=== PATIENT | male | born 1980 | race African-American/Black ===

== ENCOUNTER 2017-04-30 10:16 | Emergency (ER) | payer OTHER ==
[~2017-04-30] VITALS: Ht 177.8 cm; Wt 210.5 kg
[2017-04-30] MEDS ORDERED: fentaNYL PF VIAL 100 MCG/2 ML VIAL IV ONE (11:00)
[2017-04-30] MEDS ORDERED: ONDANSETRON PF 4 MG/2 ML VIAL. IV ONE (11:00)
[2017-04-30] MEDS ORDERED: FAMOTIDINE 20 MG/2 ML VIAL IVP ONE (11:00)
[2017-04-30 11:10] LABS: BASO % 1 % (0-3); EOS % 3 % (0-3); HEMATOCRIT 36.6 % (39.0-53.0); HEMOGLOBIN 11.7 g/dL (13.0-17.5); LYMPH # 1.7 x10^3/uL (1.0-4.8); LYMPH % 21 % (24-48); MEAN CORPUSCULAR HEMOGLOBIN 24 pg (25-35); MEAN CORPUSCULAR HGB CONC 32 g/dL (31-37); MEAN CORPUSCULAR VOLUME 73 fL (79-100); MONO % 8 % (0-9); NEUT % 68 % (31-73); PLATELET COUNT 240 x10^3/uL (140-400); RED BLOOD COUNT 4.99 x10^6/uL (4.30-5.70); RED CELL DISTRIBUTION WIDTH 15.4 % (11.5-14.5); WHITE BLOOD COUNT 8.1 x10^3/uL (4.0-11.0)
[2017-04-30 11:13] LABS: CALCIUM 8.4 mg/dL (8.5-10.1); CREATININE 0.8 mg/dL (0.7-1.3); GFR 132.4; POTASSIUM 4.1 mmol/L (3.5-5.1)
--- NOTE | 2017-04-30 11:14 | PHYS DOC ---
Past Medical History Past Medical History: Asthma, Hypertension, Other Additional Past Medical Histor: SLEEP APNEA Past Surgical History: Cholecystectomy, Gastric Bypass Alcohol Use: None Drug Use: None Adult General Chief Complaint Chief Complaint: ABDOMINAL PAIN HPI HPI Patient is a 36 year old male with history of hypertension, asthma, morbidity obesity, who presents with mild left sided abdominal pain that began 4 days ago. Patient states four weeks ago he had gastric bypass. He states he has lost approximately 75 pounds and currently weighs 464 pounds. He states he has been lifting weights but did not realizes there was a limit on how much weights he can lift post operation. He states he was lifting more than 15 pounds of weights which led him to developing left-sided abdominal pain, he states his pain is worse on weight lifting. Patient denies any nausea vomiting. Denies any diarrhea. Denies any fever. Review of Systems Review of Systems Constitutional: Denies fever or chills [] Eyes: Denies change in visual acuity, redness, or eye pain [] HENT: Denies nasal congestion or sore throat [] Respiratory: Denies cough or shortness of breath [] Cardiovascular: No additional information not addressed in HPI [] GI: Left sided abdominal pain, nausea, vomiting, diarrhea [] : Denies dysuria or hematuria [] Musculoskeletal: Denies back pain or joint pain [] Integument: Denies rash or skin lesions [] Neurologic: Denies headache, focal weakness or sensory changes [] Endocrine: Denies polyuria or polydipsia [] Current Medications Current Medications Current Medications Medications (Trade) Dose Ordered Sig/Herbie Start Time Stop Time Status Last Admin Dose Admin Famotidine (Pepcid) 20 mg 1X ONCE 04/30/17 11:00 04/30/17 11:01 DC 04/30/17 11:08 20 MG Fentanyl Citrate (Fentanyl 2ml Vial) 50 mcg 1X ONCE 04/30/17 11:00 04/30/17 11:01 DC 04/30/17 11:08 50 MCG Info (Do NOT chart on this entry -- for MONITORING) 1 each PRN DAILY PRN 04/30/17 11:15 05/02/17 11:14 Iohexol (Omnipaque 300 Mg/ml) 75 ml 1X ONCE 04/30/17 11:15 04/30/17 11:16 DC 04/30/17 11:32 75 ML Ondansetron HCl (Zofran Odt) 4 mg 1X ONCE 04/30/17 14:00 04/30/17 14:01 UNV Ondansetron HCl (Zofran) 4 mg 1X ONCE 04/30/17 11:00 04/30/17 11:01 DC 04/30/17 11:08 4 MG Oxycodone/ Acetaminophen (Percocet 5/325) 2 tab 1X ONCE 04/30/17 14:00 04/30/17 14:01 UNV Allergies Allergies Allergies Coded Allergies Type Severity Reaction Last Updated Verified Penicillins Allergy Intermediate Rash 05/22/15 Yes codeine Allergy Intermediate Rash 05/22/15 Yes Physical Exam Physical Exam Constitutional: Morbidly obese patient. No acute distress, non-toxic appearance. [] HENT: Normocephalic, atraumatic, bilateral external ears normal, oropharynx moist, no oral exudates, nose normal. [] Eyes: PERRLA, EOMI, conjunctiva normal, no discharge. [] Neck: Normal range of motion, no tenderness, supple, no stridor. [] Cardiovascular:Heart rate regular rhythm, no murmur [] Lungs & Thorax: Bilateral breath sounds clear to auscultation [] Abdomen: Rounded abdomen with multiple healed surgical scars consistent with gastric bypass. Bowel sounds normal, soft, mild tenderness on left mid and lower abdomen, no masses, no pulsatile masses. [] Skin: Warm, dry, no erythema, no rash. [] Back: No tenderness, no CVA tenderness. [] Extremities: No tenderness, no cyanosis, no clubbing, ROM intact, no edema. [] Neurologic: Alert and oriented X 3, normal motor function, normal sensory function, no focal deficits noted. [] Psychologic: Affect normal, judgement normal, mood normal. [] Current Patient Data Vital Signs Vital Signs Date Time Temp Pulse Resp B/P (MAP) Pulse Ox O2 Delivery O2 Flow Rate FiO2 04/30/17 10:30 98.8 80 18 165/78 (107) 96 Room Air 98.8 Lab Values Laboratory Tests Test 04/30/17 10:50 White Blood Count 8.1 x10^3/uL (4.0-11.0) Red Blood Count 4.99 x10^6/uL (4.30-5.70) Hemoglobin 11.7 g/dL (13.0-17.5) L Hematocrit 36.6 % (39.0-53.0) L Mean Corpuscular Volume 73 fL (79-100) L Mean Corpuscular Hemoglobin 24 pg (25-35) L Mean Corpuscular Hemoglobin Concent 32 g/dL (31-37) Red Cell Distribution Width 15.4 % (11.5-14.5) H Platelet Count 240 x10^3/uL (140-400) Neutrophils (%) (Auto) 68 % (31-73) Lymphocytes (%) (Auto) 21 % (24-48) L Monocytes (%) (Auto) 8 % (0-9) Eosinophils (%) (Auto) 3 % (0-3) Basophils (%) (Auto) 1 % (0-3) Neutrophils # (Auto) 5.5 x10^3uL (1.8-7.7) Lymphocytes # (Auto) 1.7 x10^3/uL (1.0-4.8) Monocytes # (Auto) 0.6 x10^3/uL (0.0-1.1) Eosinophils # (Auto) 0.2 x10^3/uL (0.0-0.7) Basophils # (Auto) 0.0 x10^3/uL (0.0-0.2) Sodium Level 143 mmol/L (136-145) Potassium Level 4.1 mmol/L (3.5-5.1) Chloride Level 105 mmol/L (98-107) Carbon Dioxide Level 29 mmol/L (21-32) Anion Gap 9 (6-14) Blood Urea Nitrogen 5 mg/dL (8-26) L Creatinine 0.8 mg/dL (0.7-1.3) Estimated GFR (Cockcroft-Gault) 132.4 BUN/Creatinine Ratio 6 (6-20) Glucose Level 94 mg/dL (70-99) Calcium Level 8.4 mg/dL (8.5-10.1) L Total Bilirubin 0.5 mg/dL (0.2-1.0) Aspartate Amino Transferase (AST) 130 U/L (15-37) H Alanine Aminotransferase (ALT) 71 U/L (16-63) H Alkaline Phosphatase 125 U/L (46-116) H Total Protein 7.3 g/dL (6.4-8.2) Albumin 2.9 g/dL (3.4-5.0) L Albumin/Globulin Ratio 0.7 (1.0-1.7) L Lipase 64 U/L (73-393) L Ethyl Alcohol Level < 10 mg/dL (0-10) Laboratory Tests 04/30/17 10:50 Laboratory Tests 04/30/17 10:50 EKG EKG [] Radiology/Procedures Radiology/Procedures [] Course & Med Decision Making Course & Med Decision Making Pertinent Labs and Imaging studies reviewed. (See chart for details) This is a morbidly obese 36-year-old male patient who presents today with left- sided abdominal pain that began 4 days ago. Patient had gastric bypass 4 weeks ago and has been lifting weights. His pain is exacerbated with weightlifting. He states he did not realize there was a limit on how much weights he is supposed to lift. He states he has been lifting more than 15 pounds of weights which he is not supposed to lift. CBC with nothing really acute. CMP with AST of 1:30, ALT of 71 alkaline phosphate of 125. CT of the abdomen and pelvic was noted for partial tear of the rectus abdominis muscle to the right of midline upper abdomen just below the costal margin with abdominal wall and hernia at that location otherwise no acute findings. Consulted with Dr. Dozier bariatric surgery who did patient's procedure. He requested we discharged patient with a CD of his abdomen and pelvic CT and he can follow-up with the plastic surgeon on Monday. He also requested we discharged patient on a muscle relaxer and pain medicine RX of flexeril and oxycodone provided. Patient is also to follow-up with the bariatric surgeon by calling the office on Monday. Dragon Disclaimer Dragon Disclaimer This electronic medical record was generated, in whole or in part, using a voice recognition dictation system. Departure Departure Impression: Primary Impression: Abdominal pain Additional Impression: Muscle tear Disposition: HOME, SELF-CARE Condition: STABLE Referrals: ABIGAIL OSBORNE (PCP) Patient Instructions: Abdominal Pain Additional Instructions: We did a CT scan of your abdomen which shows you have partial tear of the rectus abdominis muscle. Do not lift anything greater than 3 pounds. Do not take any aspirin or ibuprofen. Take the pain medicines and muscle relaxer as prescribed. Contact the plastic surgeon Dr. Shafer at [phone] on Monday and set up a follow up appointment. Follow up with Dr. Dozier on Monday as well Scripts Ondansetron (ZOFRAN ODT) 4 Mg Tab.rapdis 1 TAB SL Q8HRS, #15 TAB Prov: EDWINA MERA APRN 04/30/17 Oxycodone Hcl/Acetaminophen (OXYCODONE-ACETAMINOPHEN 5-325) 1 Each Tablet 1 EACH PO PRN Q6HRS Y for PAIN, #20 TAB 0 Refills Prov: EDWINA MERA APRN 04/30/17 Cyclobenzaprine Hcl (CYCLOBENZAPRINE HCL) 10 Mg Tablet 1 TAB PO TID, #30 TAB Prov: EDWINA MERA APRN 04/30/17 Problem Qualifiers Primary Impression: Abdominal pain Abdominal location: left lower quadrant Qualified Codes: R10.32 - Left lower quadrant pain EDWINA MERA APRN Apr 30, 2017 11:14
[2017-04-30] MEDS ORDERED: IOHEXOL 300 MG/ML 75 ML VIAL IV ONE (11:15)
[2017-04-30] MEDS ORDERED: CONTRAST GIVEN MC PRN (11:15)
[2017-04-30 11:20] LABS: ALBUMIN 2.9 g/dL (3.4-5.0); ALBUMIN/GLOBULIN RATIO 0.7 (1.0-1.7); TOTAL BILIRUBIN 0.5 mg/dL (0.2-1.0); TOTAL PROTEIN 7.3 g/dL (6.4-8.2)
--- NOTE | 2017-04-30 11:58 | RAD ---
One or more of the following individualized dose reduction techniques were utilized for this examination: 1. Automated exposure control 2. Adjustment of the mA and/or kV according to patient size 3. Use of iterative reconstruction technique CT abdomen and pelvis with contrast. History: Left-sided abdominal pain, gastric bypass [address] scan of the abdomen and pelvis was done using 75 mL Omnipaque 300 contrast. Lung bases are clear. There is no effusion. There is beam hardening artifact due to the patient's size. Portions of the abdominal wall were not imaged due to the patient's size. A liver lesion is not identified. The patient's had a cholecystectomy. Spleen and adrenal glands are normal. Pancreas is normal. There is no mass or hydronephrosis and the kidneys. There is a 3 mm calculus in the lower pole of the left kidney. There is no adenopathy or ascites. The patient's had gastric bypass. There is an abdominal wall hernia to the right of the midline in the upper abdomen just below the costal margin margin. Hernia extends through the medial margin of the rectus abdominis muscle which is disrupted from previous injury or previous surgery. There is no small bowel obstruction. Appendix is normal. There is no old study for comparison. Is minimal inflammation in the anterior abdominal wall to the left of midline which could be from previous surgery, there is no abscess. Impression: 1. Partial tear of the rectus abdominis muscle to the right of midline in the upper abdomen just below the costal margin margin with an abdominal wall hernia at that location. 2. Previous gastric bypass. 3. No bowel obstruction or other acute finding.
[2017-04-30 13:00] VITALS: BP 138/82
[2017-04-30] MEDS ORDERED: oxyCODONE/APAP 5/325 1 TAB TABLET PO ONE (14:00)
[2017-04-30] MEDS ORDERED: ONDANSETRON ODT 4 MG TAB.RAPDIS. PO ONE (14:00)
[2017-04-30] MEDS ORDERED: CYCL10TA2 PO (14:12)
[2017-04-30] MEDS ORDERED: OXYC1TAB7 PO (14:12)
[2017-04-30] MEDS ORDERED: ONDA4TAB10 SL (14:12)
== END 2017-04-30 14:29 | disposition home or self-care (01) ==
LOC: ER 10:16
DX: S39.011A Strain of muscle, fascia and tendon of abdomen, initial encounter (principal); R10.32 Left lower quadrant pain; I10 Essential (primary) hypertension; J45.909 Unspecified asthma, uncomplicated; G47.30 Sleep apnea, unspecified; Z90.49 Acquired absence of other specified parts of digestive tract; Z98.84 Bariatric surgery status; Z88.0 Allergy status to penicillin; Z88.5 Allergy status to narcotic agent; X50.0XXA Overexertion from strenuous movement or load, initial encounter; Y93.89 Activity, other specified; Y99.8 Other external cause status; Y92.39 Other specified sports and athletic area as the place of occurrence of the external cause
CPT/HCPCS: 36415; 74177; 80053; 83690; 85027; 96374; 96375; 99285; G0480; J2405; J3010; Q0162; Q9967; S0028

== ENCOUNTER 2017-05-04 14:11 | Emergency (ER) | payer OTHER ==
[~2017-05-04] VITALS: Ht 175.3 cm; Wt 208.7 kg
[~2017-05-04 14:11] MED LIST: CYCL10TA2 PO; ONDA4TAB10 SL; OXYC1TAB7 PO
[2017-05-04 14:19] VITALS: BP 141/77
[2017-05-04] MEDS ORDERED: LIDOCAINE 1%/EPI 1:100,000 20 ML VIAL. INJ ONE (15:00)
[2017-05-04] MEDS ORDERED: DIPHTH,PERTUSS(ACELL),TET TOX 0.5 ML DISP.SYRIN. VAX IM ONE (15:00)
[2017-05-04] MEDS ORDERED: CLIN300C8 PO (15:33)
--- NOTE | 2017-05-04 15:40 | PHYS DOC ---
Past Medical History Past Medical History: Asthma, Hypertension, Other Additional Past Medical Histor: SLEEP APNEA,ABSCESSES Past Surgical History: Cholecystectomy, Gastric Bypass, Other Additional Past Surgical Histo: PILONIDAL CYST REMOVAL X 3 Alcohol Use: None Drug Use: None Adult General Chief Complaint Chief Complaint: ABSCESS HPI HPI Patient is a 36 year old male who presents with left flank abscess. Denies fevers, symptoms developing over 1 week. Has had abscess in the past that required I&D. Denies DM. Review of Systems Review of Systems Constitutional: Denies fever or chills [] Eyes: Denies change in visual acuity, redness, or eye pain [] HENT: Denies nasal congestion or sore throat [] Respiratory: Denies cough or shortness of breath [] Cardiovascular: denies chest pain GI: Denies abdominal pain, nausea, vomiting, bloody stools or diarrhea [] : Denies dysuria or hematuria [] Musculoskeletal: Denies back pain or joint pain [] Integument: Denies rash or skin lesions [] Neurologic: Denies headache, focal weakness or sensory changes [] Current Medications Current Medications Current Medications Medications (Trade) Dose Ordered Sig/Herbie Start Time Stop Time Status Last Admin Dose Admin Diphtheria/ Tetanus/Acell Pertussis (Boostrix) 0.5 ml ONCE ONCE 05/04/17 15:00 05/04/17 15:01 DC Lidocaine/ Epinephrine (Xylocaine 1%-Epi 1:100,000) 20 ml 1X ONCE 05/04/17 15:00 05/04/17 15:01 DC 05/04/17 15:00 20 ML Allergies Allergies Allergies Coded Allergies Type Severity Reaction Last Updated Verified Penicillins Allergy Intermediate Rash 05/22/15 Yes codeine Allergy Intermediate Rash 05/22/15 Yes Physical Exam Physical Exam Constitutional: Well developed, well nourished, no acute distress, morbid obesity HENT: Normocephalic, atraumatic, bilateral external ears normal, oropharynx moist, no oral exudates, nose normal. [] Eyes: PERRLA, EOMI, conjunctiva normal, no discharge. [] Neck: Normal range of motion, no tenderness, supple, no stridor. [] Cardiovascular:Heart rate regular with regular rhythm Lungs & Thorax: no resp distress Skin: Warm, dry, large R flank abscess, fluctuant, no significant erythema, ttp Back: No tenderness, no CVA tenderness. [] Extremities: No tenderness, no cyanosis, no clubbing, ROM intact, no edema. [] Neurologic: Alert and oriented X 3, normal motor function, normal sensory function, no focal deficits noted. [] Psychologic: Affect normal, judgement normal, mood normal. [] Current Patient Data Vital Signs Vital Signs Date Time Temp Pulse Resp B/P (MAP) Pulse Ox O2 Delivery O2 Flow Rate FiO2 05/04/17 14:19 98.5 94 16 141/77 (98) 94 Room Air 98.5 EKG EKG [] Radiology/Procedures Radiology/Procedures Indication: abscess Procedure: The patient was positioned appropriately. Local anesthesia was 1% LIDO WITH EPI. An incision was then made over the apex of the lesion and COPIOUS PUS material was expressed. The drainage cavity was irrigated and packed with sterile gauze. The patients tetanus status updated as needed. The patient tolerated the procedure well. Complications: none.[] Course & Med Decision Making Course & Med Decision Making Pertinent Labs and Imaging studies reviewed. (See chart for details) Abscess reviewed by ultrasound by me. It shows large abscess. I&D performed, tetanus updated. Patient tolerated well, was packed. Wound check in 2 days, discharged with clindamycin 3 times a day, return precautions given. Dragon Disclaimer Dragon Disclaimer This electronic medical record was generated, in whole or in part, using a voice recognition dictation system. Departure Departure Impression: Primary Impression: Abscess Disposition: HOME, SELF-CARE Condition: STABLE Referrals: ABIGAIL OSBORNE (PCP) Patient Instructions: Abscess, Care After Additional Instructions: Please take antibiotics as directed and have your wound checked in 2 days. Return sooner if you have a fever >100.3 Scripts Clindamycin Hcl (CLINDAMYCIN HCL) 300 Mg Capsule 1 CAP PO TID, #30 CAP Prov: KRISTI SANCHEZ MD 05/04/17 KRISTI SANCHEZ MD May 04, 2017 15:40
== END 2017-05-04 15:54 | disposition home or self-care (01) ==
LOC: ER 14:11
DX: L02.211 Cutaneous abscess of abdominal wall (principal); J45.909 Unspecified asthma, uncomplicated; I10 Essential (primary) hypertension; G47.30 Sleep apnea, unspecified; Z90.49 Acquired absence of other specified parts of digestive tract; Z98.84 Bariatric surgery status; Z88.0 Allergy status to penicillin; Z88.5 Allergy status to narcotic agent
CPT/HCPCS: 10060; 90471; 90715; 99283; J3490

== ENCOUNTER 2017-05-06 10:09 | Emergency (ER) | payer OTHER ==
[~2017-05-06] VITALS: Ht 175.3 cm; Wt 208.7 kg
[~2017-05-06 10:09] MED LIST changes: +CLIN300C8 PO
[2017-05-06 10:23] VITALS: BP 157/93
--- NOTE | 2017-05-06 11:06 | PHYS DOC ---
Past Medical History Past Medical History: Asthma, Hypertension, Other Additional Past Medical Histor: SLEEP APNEA,ABSCESSES MULTIPLE W/I&D Past Surgical History: Cholecystectomy, Gastric Bypass, Other Additional Past Surgical Histo: PILONIDAL CYST REMOVAL X 3 Alcohol Use: None Drug Use: None Adult General Chief Complaint Chief Complaint: WOUND CHECK [facility] HPI Patient is a 36 year old male presents to the emergency department with complaint of wound check and a development of a new abscess. Patient was in the emergency department 2 days ago and had an I&D of an abscess on the left back. He states that is feeling better but he notes that he has developed an abscess on the left abdominal wall. He reports no fever, no nausea, no vomiting. He states he is taking the antibiotics and pain medications as directed on . Review of Systems Review of Systems Constitutional: Denies fever or chills [] Eyes: Denies change in visual acuity, redness, or eye pain [] HENT: Denies nasal congestion or sore throat [] Respiratory: Denies cough or shortness of breath [] Cardiovascular: No additional information not addressed in HPI [] GI: Denies abdominal pain, nausea, vomiting, bloody stools or diarrhea [] : Denies dysuria or hematuria [] Musculoskeletal: Denies back pain or joint pain [] Integument: Abscess Neurologic: Denies headache, focal weakness or sensory changes [] Endocrine: Denies polyuria or polydipsia [] Allergies Allergies Allergies Coded Allergies Type Severity Reaction Last Updated Verified Penicillins Allergy Intermediate Rash 05/22/15 Yes codeine Allergy Intermediate Rash 05/22/15 Yes Physical Exam Physical Exam Constitutional: Well developed, well nourished, no acute distress, non-toxic appearance. [] Neck: Normal range of motion, no tenderness, supple, no lymphadenopathy Cardiovascular:Heart rate regular rhythm, no murmur [] Lungs & Thorax: Bilateral breath sounds clear to auscultation [] Abdomen: Bowel sounds normal, soft, no tenderness, no masses, no pulsatile masses. [] Skin: Left mid back, open wound, no erythema no induration with packing. The packing was removed, small amount of purulent discharge. Patient tolerated procedure well. The left lower abdominal wall, between rolls of subcutaneous tissue, 2 cm raised fluctuant area with mild erythema. There is no induration. Back: No tenderness, no CVA tenderness. [] Current Patient Data Vital Signs Vital Signs Date Time Temp Pulse Resp B/P (MAP) Pulse Ox O2 Delivery O2 Flow Rate FiO2 05/06/17 10:23 99.1 97 16 157/93 (114) 96 Room Air 99.1 EKG EKG [] Radiology/Procedures Radiology/Procedures Procedure note: Packing, 1 inch iodoform gauze, to the left mid back wound. Dressing applied. The abscess on the left lower abdominal wall is cleansed with Betadine, anesthetized with 1% lidocaine 1 mL. #11 blade was utilized to incise the abscess for moderate amount of purulent discharge. The wound was dressed with a bulky bandage. Patient tolerated procedures well. [] Course & Med Decision Making Course & Med Decision Making Pertinent Labs and Imaging studies reviewed. (See chart for details) [] Dragon Disclaimer Dragon Disclaimer This electronic medical record was generated, in whole or in part, using a voice recognition dictation system. Departure Departure Impression: Primary Impression: Abscess Additional Impression: Wound check, abscess Disposition: HOME, SELF-CARE Condition: STABLE Referrals: ABIGAIL OSBORNE (PCP) Patient Instructions: Abscess, Care After Additional Instructions: Continue medications as prescribed for you on . Follow-up with your primary care provider in 2 days. Problem Qualifiers ELIZA ALVAREZ APRN May 06, 2017 11:06
== END 2017-05-06 11:16 | disposition home or self-care (01) ==
LOC: ER 10:09
DX: L02.212 Cutaneous abscess of back [any part, except buttock and flank] (principal); I10 Essential (primary) hypertension; J45.909 Unspecified asthma, uncomplicated; Z88.0 Allergy status to penicillin; Z90.49 Acquired absence of other specified parts of digestive tract; Z98.84 Bariatric surgery status
CPT/HCPCS: 10060; 99283-25

== ENCOUNTER 2017-09-08 19:04 | Emergency (ER) | payer OTHER ==
[~2017-09-08] VITALS: Ht 175.3 cm; Wt 170.6 kg
[2017-09-08 19:10] VITALS: BP 137/74
[2017-09-08] MEDS ORDERED: SULF1TAB24 PO (21:37)
--- NOTE | 2017-09-09 01:42 | PHYS DOC ---
Past Medical History Past Medical History: Asthma, Hypertension, Other Additional Past Medical Histor: SLEEP APNEA,ABSCESSES MULTIPLE W/I&D Past Surgical History: Cholecystectomy, Gastric Bypass, Other Additional Past Surgical Histo: PILONIDAL CYST REMOVAL X 3 Alcohol Use: None Drug Use: None Adult General Chief Complaint Chief Complaint: SKIN PROBLEM HPI HPI Patient is a 36 year old male who presents with an abscess to the top of his left buttock. The patient states that it has continued to grow over the past week and is now extremely large. He denies fever, nausea,or vomiting. He says he gets this condition a proximally twice a year. When it happens he does need to come into the emergency department and have it drained and takes antibiotics to resolve the abscess. Review of Systems Review of Systems Constitutional: Denies fever or chills [] Respiratory: Denies cough or shortness of breath [] Cardiovascular: No additional information not addressed in HPI [] Integument: See history of present illness Neurologic: Denies headache, focal weakness or sensory changes [] Endocrine: Denies polyuria or polydipsia [] All other systems were reviewed and found to be within normal limits, except as documented in this note. Allergies Allergies Allergies Coded Allergies Type Severity Reaction Last Updated Verified Penicillins Allergy Intermediate Rash 05/22/15 Yes codeine Allergy Intermediate Rash 05/22/15 Yes Physical Exam Physical Exam Constitutional: Well developed, well nourished, no acute distress, non-toxic appearance. [] Cardiovascular:Heart rate regular rhythm, no murmur [] Lungs & Thorax: Bilateral breath sounds clear to auscultation [] Skin: There is a golf ball size abscess to the top of the patient's left buttock that is indurated with fluctuance Neurologic: Alert and oriented X 3, normal motor function, normal sensory function, no focal deficits noted. [] Psychologic: Affect normal, judgement normal, mood normal. [] Current Patient Data Vital Signs Vital Signs Date Time Temp Pulse Resp B/P (MAP) Pulse Ox O2 Delivery O2 Flow Rate FiO2 09/08/17 19:10 98.3 84 18 99 Room Air 98.3 EKG EKG [] Radiology/Procedures Radiology/Procedures []The abscess was opened with an 11 blade where upon a copious amount of foul- smelling purulent drainage came from the abscess. There was approximately 30 Robison of purulent drainage upon immediate opening of the abscess. I was able to express approximately 15-20 more mls of purulent drainage. The patient tolerated the procedure well. The area was covered with bulky gauze dressing and taped to allow for continued drainage. Course & Med Decision Making Course & Med Decision Making Pertinent Labs and Imaging studies reviewed. (See chart for details) []1. Abscess Patient was placed on an antibiotic and instructed to take all medication until gone. He is to use hot compresses multiple times a day. He is to follow-up with his primary care provider in 5-7 days for a recheck of this abscess or return to the ED if worsening. Dragon Disclaimer Dragon Disclaimer This electronic medical record was generated, in whole or in part, using a voice recognition dictation system. Departure Departure Impression: Primary Impression: Abscess Disposition: 01 HOME, SELF-CARE Condition: STABLE Referrals: ABIGAIL OSBORNE (PCP) Patient Instructions: Abscess, Care After Additional Instructions: Please follow-up with your primary care provider in one week for recheck of the wound. Return to the ED if worsening. Please use all antibiotics as prescribed. Scripts Sulfamethoxazole/Trimethoprim (BACTRIM DS TABLET) 1 Each Tablet 1 TAB PO BID, #20 TAB Prov: GEOVANNY RUIZ APRN 09/08/17 GEOVANNY RUIZ APRN Sep 09, 2017 01:42
== END 2017-09-08 21:45 | disposition home or self-care (01) ==
LOC: ER 19:04
DX: L02.31 Cutaneous abscess of buttock (principal); J45.909 Unspecified asthma, uncomplicated; I10 Essential (primary) hypertension; Z88.0 Allergy status to penicillin; Z88.5 Allergy status to narcotic agent
CPT/HCPCS: 10060; 99283-25

== ENCOUNTER 2018-01-29 15:46 | Inpatient (IN) | payer OTHER ==
[2018-01-29] MEDS: fentaNYL PF VIAL 100 MCG/2 ML VIAL IV ×3 (16:53→22:34)
[2018-01-29 17:01] LABS: ADD MAN DIFF? NO
[2018-01-29 17:02] LABS: BASO # 0.1 x10^3/uL (0.0-0.2); BASO % 1 % (0-3); EOS # 0.4 x10^3/uL (0.0-0.7); EOS % 4 % (0-3); HEMATOCRIT 37.3 % (39.0-53.0); LYMPH # 1.9 x10^3/uL (1.0-4.8); LYMPH % 21 % (24-48); MEAN CORPUSCULAR HEMOGLOBIN 26 pg (25-35); MEAN CORPUSCULAR HGB CONC 32 g/dL (31-37); MEAN CORPUSCULAR VOLUME 81 fL (79-100); MONO # 0.8 x10^3/uL (0.0-1.1); MONO % 9 % (0-9); NEUT # 6.1 x10^3uL (1.8-7.7); NEUT % 65 % (31-73); PLATELET COUNT 292 x10^3/uL (140-400); RED CELL DISTRIBUTION WIDTH 18.8 % (11.5-14.5); WHITE BLOOD COUNT 9.4 x10^3/uL (4.0-11.0)
[2018-01-29 17:09] LABS: ANION GAP 11 (6-14); BLOOD UREA NITROGEN 20 mg/dL (8-26); BUN/CREATININE RATIO 25 (6-20); CARBON DIOXIDE 28 mmol/L (21-32); CHLORIDE 97 mmol/L (98-107); CREATININE 0.8 mg/dL (0.7-1.3); GFR 131.6; GLUCOSE 101 mg/dL (70-99); POTASSIUM 4.1 mmol/L (3.5-5.1); SODIUM 136 mmol/L (136-145)
[2018-01-29 17:11] LABS: INR 1.1 (0.8-1.1); PARTIAL THROMBOPLASTIN TIME 31 SEC (24-38); PROTHROMBIN TIME PATIENT 13.6 SEC (11.7-14.0)
[2018-01-29 17:15] LABS: ALBUMIN 3.5 g/dL (3.4-5.0); ALBUMIN/GLOBULIN RATIO 0.8 (1.0-1.7); ALK PHOS 119 U/L (46-116); ALT (SGPT) 47 U/L (16-63); AST (SGOT) 39 U/L (15-37); CREATINE KINASE 237 U/L (39-308); MAGNESIUM 1.6 mg/dL (1.8-2.4); TOTAL BILIRUBIN 1.9 mg/dL (0.2-1.0); TOTAL PROTEIN 7.9 g/dL (6.4-8.2)
[2018-01-29] MEDS: IOHEXOL 300 MG/ML 100ML VIAL. IV (17:21)
[2018-01-29] MEDS ORDERED: CONTRAST GIVEN MC (17:30)
[2018-01-29] MEDS ORDERED: ONDANSETRON PF 4 MG/2 ML VIAL. IV (18:45)
[2018-01-29 19:14] LABS: BILIRUBIN,URINE NEGATIVE (NEG); CLARITY,URINE CLEAR; COLOR,URINE YELLOW; GLUCOSE,URINE NEGATIVE (NEG); NITRITE,URINE NEGATIVE (NEG); PROTEIN,URINE NEGATIVE (NEG-TRACE); UROBILINOGEN,URINE >=8.0 mg/dL (0.2 mg/dL)
[2018-01-29 19:19] LABS: BARBITURATES NEG (NEG); BENZODIAZEPINES NEG (NEG); CANNABINOIDS NEG (NEG); COCAINE NEG (NEG); METHADONE NEG (NEG); OPIATES NEG (NEG); PHENCYCLIDINE NEG (NEG)
[2018-01-29 19:21] LABS: AMPHETAMINE/METHAMPHETAMINE NEG (NEG); ETHANOL, URINE NEG (NEG)
[2018-01-29 19:39] LABS: BACTERIA,URINE 0 /HPF (0-FEW); RBC,URINE 0 /HPF (0-2); SQUAMOUS EPITHELIAL CELL,UR OCC /LPF; WBC,URINE 0 /HPF (0-4)
[2018-01-30] MEDS: fentaNYL PF VIAL 100 MCG/2 ML VIAL IV ×7 (00:39→22:22)
[2018-01-30 08:23] LABS: ADD MAN DIFF? NO
[2018-01-30 08:37] LABS: BASO # 0.1 x10^3/uL (0.0-0.2); BASO % 1 % (0-3); EOS # 0.5 x10^3/uL (0.0-0.7); EOS % 5 % (0-3); HEMATOCRIT 36.4 % (39.0-53.0); HEMOGLOBIN 11.8 g/dL (13.0-17.5); LYMPH # 2.1 x10^3/uL (1.0-4.8); LYMPH % 24 % (24-48); MEAN CORPUSCULAR HEMOGLOBIN 26 pg (25-35); MEAN CORPUSCULAR HGB CONC 32 g/dL (31-37); MEAN CORPUSCULAR VOLUME 81 fL (79-100); MONO # 0.8 x10^3/uL (0.0-1.1); MONO % 9 % (0-9); NEUT # 5.6 x10^3uL (1.8-7.7); NEUT % 62 % (31-73); PLATELET COUNT 310 x10^3/uL (140-400)
[2018-01-30 08:44] LABS: ANION GAP 7 (6-14); BLOOD UREA NITROGEN 15 mg/dL (8-26); CALCIUM 9.6 mg/dL (8.5-10.1); CARBON DIOXIDE 29 mmol/L (21-32); CHLORIDE 99 mmol/L (98-107); CREATININE 0.8 mg/dL (0.7-1.3); GFR 131.6; GLUCOSE 104 mg/dL (70-99); POTASSIUM 3.8 mmol/L (3.5-5.1); SODIUM 135 mmol/L (136-145)
[2018-01-30] MEDS: MUPIROCIN 2 % NASAL OINTMENT 22GM TUBE. NS ×2 (11:00→21:00)
[2018-01-30] MEDS: hydroCHLOROthiazide 12.5 MG CAPSULE PO (12:23)
[2018-01-30] MEDS: POLYETHYLENE GLYCOL 3350 17 GM PACKET. PO (12:23)
[2018-01-30] MEDS: NAPROXEN 500 MG TABLET PO (12:24)
[2018-01-30] MEDS: LISINOPRIL 10 MG TABLET PO (12:24)
[2018-01-30] MEDS: DEXAMETHASONE SOD PHOS 20 MG/5 ML VIAL. IV (15:17)
[2018-01-30] MEDS: MAGNESIUM SULFATE 2GM 50 ML IV (15:18)
[2018-01-30] MEDS: oxyCODONE/APAP 10/325 1 TAB TABLET PO (17:51)
[2018-01-30] MEDS: DEXAMETHASONE SOD PHOS 4 MG/ML VIAL IV (17:52)
[2018-01-30] MEDS ORDERED: BISACODYL 10 MG SUPP.RECT. PR (18:15)
[2018-01-30] MEDS ORDERED: DOCUSATE SODIUM 283 MG/5 ML ENEMA. PR (18:15)
[2018-01-30] MEDS: tiZANidine 4 MG TABLET. PO (22:21)
[2018-01-30] MEDS: MAGNESIUM CITRATE 296 ML SOLUTION. PO (22:23)
[2018-01-31] MEDS: oxyCODONE/APAP 10/325 1 TAB TABLET PO ×4 (00:37→18:10)
[2018-01-31] MEDS: DEXAMETHASONE SOD PHOS 4 MG/ML VIAL IV ×5 (00:41→23:50)
[2018-01-31] MEDS: fentaNYL PF VIAL 100 MCG/2 ML VIAL IV ×3 (03:33→23:50)
[2018-01-31] MEDS: tiZANidine 4 MG TABLET. PO ×3 (06:32→21:42)
[2018-01-31] MEDS: MUPIROCIN 2 % NASAL OINTMENT 22GM TUBE. NS ×2 (09:00→18:10)
[2018-01-31] MEDS: POLYETHYLENE GLYCOL 3350 17 GM PACKET. PO (09:00)
[2018-01-31] MEDS: LISINOPRIL 10 MG TABLET PO (10:14)
[2018-01-31] MEDS: BISACODYL 5 MG TABLET.DR. PO (10:15)
[2018-01-31] MEDS: hydroCHLOROthiazide 12.5 MG CAPSULE PO (10:15)
[2018-01-31] MEDS: HYDROcodone/APAP 10/325 1 TAB TABLET PO (10:15)
[2018-01-31] MEDS: MORPHINE ER 15 MG TABLET.ER PO ×2 (11:21→21:42)
[2018-01-31] MEDS: fentaNYL 25MCG/HR PATCH 1 PATCH PATCH.TD72 TD (11:22)
[2018-02-01] MEDS: DEXAMETHASONE SOD PHOS 4 MG/ML VIAL IV (06:40)
[2018-02-01] MEDS: tiZANidine 4 MG TABLET. PO ×2 (06:40→13:53)
[2018-02-01] MEDS: oxyCODONE/APAP 10/325 1 TAB TABLET PO ×2 (06:40→13:54)
[2018-02-01] MEDS: hydroCHLOROthiazide 12.5 MG CAPSULE PO (08:54)
[2018-02-01] MEDS: LISINOPRIL 10 MG TABLET PO (08:54)
[2018-02-01] MEDS: POLYETHYLENE GLYCOL 3350 17 GM PACKET. PO (08:55)
[2018-02-01] MEDS: BISACODYL 5 MG TABLET.DR. PO (08:55)
[2018-02-01] MEDS: MORPHINE ER 15 MG TABLET.ER PO (08:55)
[2018-02-01] MEDS: MUPIROCIN 2 % NASAL OINTMENT 22GM TUBE. NS (10:44)
[2018-02-01] MEDS ORDERED: DEXAMETHASONE SOD PHOS 4 MG/ML VIAL IV (21:00)
== END 2018-02-01 17:28 | disposition home or self-care (01) | DRG 551 ==
LOC: ER 15:46 → 4 NORTH 18:30
DX: M50.20 Other cervical disc displacement, unspecified cervical region (principal); G82.50 Quadriplegia, unspecified; M48.02 Spinal stenosis, cervical region; E66.01 Morbid (severe) obesity due to excess calories; G95.9 Disease of spinal cord, unspecified; S06.4X9A Epidural hemorrhage with loss of consciousness of unspecified duration, initial encounter; S22.49XA Multiple fractures of ribs, unspecified side, initial encounter for closed fracture; F17.210 Nicotine dependence, cigarettes, uncomplicated; G47.30 Sleep apnea, unspecified; Z88.0 Allergy status to penicillin; I10 Essential (primary) hypertension; R20.2 Paresthesia of skin; W01.0XXA Fall on same level from slipping, tripping and stumbling without subsequent striking against object, initial encounter; J45.909 Unspecified asthma, uncomplicated; K59.00 Constipation, unspecified; Z82.49 Family history of ischemic heart disease and other diseases of the circulatory system; Z98.84 Bariatric surgery status; Z68.38 Body mass index [BMI] 38.0-38.9, adult; Z90.49 Acquired absence of other specified parts of digestive tract; Y93.89 Activity, other specified; Y92.098 Other place in other non-institutional residence as the place of occurrence of the external cause; Y99.8 Other external cause status
CPT/HCPCS: 36415; 70450; 70498; 71046; 72125; 72141; 73110; 80048; 80053; 80307; 81001; 82550; 83735; 85025; 85610; 85730; 96374; 97161-GP; 97165-GO; 99285; 99285-25; J1100; J3010; J3475; Q9967

== ENCOUNTER 2018-03-13 14:26 | Emergency (ER) | payer OTHER ==
[2018-03-13 16:20] LABS: ADD MAN DIFF? NO
[2018-03-13 16:22] LABS: BILIRUBIN,URINE MODERATE (NEG); CLARITY,URINE CLEAR; COLOR,URINE YELLOW; GLUCOSE,URINE NEGATIVE (NEG); NITRITE,URINE NEGATIVE (NEG); PROTEIN,URINE NEGATIVE (NEG-TRACE)
[2018-03-13 16:26] LABS: BASO % 1 % (0-3); EOS # 0.1 x10^3/uL (0.0-0.7); EOS % 1 % (0-3); HEMATOCRIT 35.7 % (39.0-53.0); HEMOGLOBIN 11.5 g/dL (13.0-17.5); LYMPH # 1.5 x10^3/uL (1.0-4.8); LYMPH % 18 % (24-48); MEAN CORPUSCULAR HEMOGLOBIN 27 pg (25-35); MEAN CORPUSCULAR HGB CONC 32 g/dL (31-37); MEAN CORPUSCULAR VOLUME 82 fL (79-100); MONO # 0.7 x10^3/uL (0.0-1.1); MONO % 8 % (0-9); NEUT # 5.9 x10^3uL (1.8-7.7); NEUT % 72 % (31-73); PLATELET COUNT 233 x10^3/uL (140-400); RED BLOOD COUNT 4.35 x10^6/uL (4.30-5.70); RED CELL DISTRIBUTION WIDTH 13.9 % (11.5-14.5); WHITE BLOOD COUNT 8.2 x10^3/uL (4.0-11.0)
[2018-03-13] MEDS ORDERED: CONTRAST GIVEN MC (16:30)
[2018-03-13 16:36] LABS: ANION GAP 6 (6-14); BLOOD UREA NITROGEN 11 mg/dL (8-26); BUN/CREATININE RATIO 14 (6-20); CALCIUM 8.9 mg/dL (8.5-10.1); CARBON DIOXIDE 29 mmol/L (21-32); CHLORIDE 105 mmol/L (98-107); CREATININE 0.8 mg/dL (0.7-1.3); GFR 131.6; GLUCOSE 91 mg/dL (70-99); POTASSIUM 3.9 mmol/L (3.5-5.1); SODIUM 140 mmol/L (136-145)
[2018-03-13 16:42] LABS: ALBUMIN 2.8 g/dL (3.4-5.0); ALBUMIN/GLOBULIN RATIO 0.7 (1.0-1.7); ALT (SGPT) 15 U/L (16-63); AST (SGOT) 12 U/L (15-37); LIPASE 42 U/L (73-393); TOTAL BILIRUBIN 0.8 mg/dL (0.2-1.0); TOTAL PROTEIN 6.7 g/dL (6.4-8.2)
[2018-03-13 16:53] LABS: BACTERIA,URINE 0 /HPF (0-FEW); HYALINE CASTS, URINE FEW /HPF; SQUAMOUS EPITHELIAL CELL,UR OCC /LPF
[2018-03-13] MEDS: IOHEXOL 300 MG/ML 100ML VIAL. IV (16:57)
[2018-03-13 17:52] LABS: ALK PHOS 161 U/L (46-116)
== END 2018-03-13 18:34 | disposition home or self-care (01) ==
LOC: ER 14:26
DX: R10.30 Lower abdominal pain, unspecified (principal); G89.29 Other chronic pain; I10 Essential (primary) hypertension; Z88.0 Allergy status to penicillin
CPT/HCPCS: 36415; 74177; 80053; 81001; 83690; 85025; 99285-25; Q9967

== ENCOUNTER → 2018-03-13 | Outpatient (CLI) | payer OTHER | END | disposition home or self-care (01) | LOC: KCIC 14:23 | DX: D71 Functional disorders of polymorphonuclear neutrophils (principal); Z87.891 Personal history of nicotine dependence | CPT/HCPCS: 71046 ==

== ENCOUNTER → 2018-03-20 | Outpatient (CLI) | payer OTHER | END | disposition home or self-care (01) | LOC: MRI 13:52 | DX: S14.15 Other incomplete lesions of cervical spinal cord (principal); M50.21 Other cervical disc displacement, high cervical region; X58.XXXD Exposure to other specified factors, subsequent encounter | CPT/HCPCS: 72141 ==

== ENCOUNTER → 2018-03-26 | Day surgery (SDC) | payer OTHER ==
[~2018-03-26] MED LIST changes: -CLIN300C8 PO; -CYCL10TA2 PO; +DEXAMETHASONE SOD PHOS 20 MG/5 ML VIAL.; +LIDOCAINE 1% PF 2 ML VIAL. ID; +MORPHINE SULFATE 2 MG/ML DISP.SYRIN. IV; -ONDA4TAB10 SL; +ONDANSETRON PF 4 MG/2 ML VIAL.; -OXYC1TAB7 PO; +PROCHLORPERAZINE 10 MG/2 ML VIAL. IV; +PROPOFOL 20 ML IV; +SEVOFLURANE 31 TO 60 MINUTES. IH; +fentaNYL PF VIAL 100 MCG/2 ML VIAL; +fentaNYL PF VIAL 100 MCG/2 ML VIAL IV
[2018-03-26] MEDS: IV RINGERS,LACTATED 1000ML 1,000 ML IV ×2 (06:51→10:37)
[2018-03-26] MEDS: BUPIVACAINE-EPI 0.25%-1:200000 50 ML VIAL. (09:53)
[2018-03-26] MEDS: fentaNYL PF VIAL 100 MCG/2 ML VIAL IV ×4 (10:20→10:53)
[2018-03-26 11:07] LABS: HEMATOCRIT 32.1 % (39.0-53.0); HEMOGLOBIN 10.2 g/dL (13.0-17.5); MEAN CORPUSCULAR HEMOGLOBIN 26 pg (25-35); MEAN CORPUSCULAR HGB CONC 32 g/dL (31-37); MEAN CORPUSCULAR VOLUME 80 fL (79-100); PLATELET COUNT 319 x10^3/uL (140-400); RED BLOOD COUNT 4.01 x10^6/uL (4.30-5.70); RED CELL DISTRIBUTION WIDTH 13.3 % (11.5-14.5); WHITE BLOOD COUNT 4.2 x10^3/uL (4.0-11.0)
[2018-03-26 11:39] LABS: INR 1.3 (0.8-1.1); PARTIAL THROMBOPLASTIN TIME 35 SEC (24-38); PROTHROMBIN TIME PATIENT 15.2 SEC (11.7-14.0)
[2018-03-26] MEDS: PHYTONADIONE 10 MG/ML AMPUL. SQ (12:11)
== END | disposition home or self-care (01) ==
LOC: SURG 08:03
DX: S30.1XXA Contusion of abdominal wall, initial encounter (principal); E66.9 Obesity, unspecified; Z88.0 Allergy status to penicillin; I10 Essential (primary) hypertension; J45.909 Unspecified asthma, uncomplicated; G47.30 Sleep apnea, unspecified; Z98.84 Bariatric surgery status; Z90.49 Acquired absence of other specified parts of digestive tract; Z98.890 Other specified postprocedural states; F17.210 Nicotine dependence, cigarettes, uncomplicated; Z68.39 Body mass index [BMI] 39.0-39.9, adult; V49.9XXA Car occupant (driver) (passenger) injured in unspecified traffic accident, initial encounter; Y93.89 Activity, other specified; Y92.89 Other specified places as the place of occurrence of the external cause; Y99.8 Other external cause status
CPT/HCPCS: 10140; 36415; 85027; 85610; 85730; 87071; 87075; 87205; A7015; J1100; J1956; J2405; J2704; J3010; J3430

== ENCOUNTER 2018-04-30 06:22 | Day surgery (SDC) | payer OTHER ==
[2018-04-30] MEDS ORDERED: PROCHLORPERAZINE 10 MG/2 ML VIAL. IV (07:00)
[2018-04-30] MEDS ORDERED: ONDANSETRON PF 4 MG/2 ML VIAL. IV (07:00)
[2018-04-30] MEDS ORDERED: fentaNYL PF VIAL 100 MCG/2 ML VIAL IV (07:00)
[2018-04-30] MEDS ORDERED: LIDOCAINE 1% PF 2 ML VIAL. ID (07:00)
[2018-04-30] MEDS ORDERED: DEXAMETHASONE SOD PHOS 20 MG/5 ML VIAL. (07:24)
[2018-04-30] MEDS ORDERED: PROPOFOL 0 ML IV (07:24)
[2018-04-30] MEDS ORDERED: LIDOCAINE 2% PF Vial for OR 5 ML VIAL. (07:25)
[2018-04-30] MEDS ORDERED: FAMOTIDINE 20 MG/2 ML VIAL (07:25)
[2018-04-30] MEDS ORDERED: fentaNYL PF VIAL 100 MCG/2 ML VIAL (07:25)
[2018-04-30] MEDS ORDERED: ONDANSETRON PF 4 MG/2 ML VIAL. (07:25)
[2018-04-30] MEDS ORDERED: MIDAZOLAM HCL/PF 2 MG/2 ML VIAL. (07:25)
[2018-04-30] MEDS: IV RINGERS,LACTATED 1000ML 1,000 ML IV (07:33)
[2018-04-30] MEDS ORDERED: PROPOFOL 20 ML IV ×3 (07:49→08:25)
[2018-04-30] MEDS: BUPIVACAINE-EPI 0.25%-1:200000 50 ML VIAL. (07:56)
[2018-04-30] MEDS ORDERED: DESFLURANE 31 TO 60 MINUTES IH (08:40)
[2018-04-30] MEDS: fentaNYL PF VIAL 100 MCG/2 ML VIAL IV ×4 (09:07→09:40)
[2018-04-30] MEDS: MORPHINE SULFATE 2 MG/ML DISP.SYRIN. IV ×4 (09:22→10:00)
[2018-04-30] MEDS: oxyCODONE/APAP 7.5/325 1 TAB TABLET PO (09:59)
== END 2018-04-30 10:45 | disposition home or self-care (01) ==
LOC: SURG 06:22
DX: S30.1XXD Contusion of abdominal wall, subsequent encounter (principal); I10 Essential (primary) hypertension; F17.210 Nicotine dependence, cigarettes, uncomplicated; G47.30 Sleep apnea, unspecified; J45.909 Unspecified asthma, uncomplicated; G89.29 Other chronic pain; M50.21 Other cervical disc displacement, high cervical region; E66.9 Obesity, unspecified; Z90.49 Acquired absence of other specified parts of digestive tract; Z68.39 Body mass index [BMI] 39.0-39.9, adult; Z88.0 Allergy status to penicillin; Z98.84 Bariatric surgery status; Z98.890 Other specified postprocedural states; Z79.899 Other long term (current) drug therapy
CPT/HCPCS: 22902; 88304; A7015; J1100; J1956; J2001; J2250; J2270; J2405; J2704; J3010; S0028

== ENCOUNTER → 2018-08-07 | Outpatient (CLI) | payer MEDICAID, OTHER ==
[~2018-08-07] MED LIST changes: +CLIN300C8 PO; +CYCL10TA2 PO; -DEXAMETHASONE SOD PHOS 20 MG/5 ML VIAL.; +DOCU-150 PO; +FENT1PAT15 TD; +HYDR-963 PO; -LIDOCAINE 1% PF 2 ML VIAL. ID; +LISI10TA2 PO; +LISI1TAB3 PO; +METH-38 PO; -MORPHINE SULFATE 2 MG/ML DISP.SYRIN. IV; +MULT-246 PO; +NAPR-514 PO; +ONDA4TAB10 SL; -ONDANSETRON PF 4 MG/2 ML VIAL.; +OXYC-327 PO; +OXYC1TAB7 PO; +POLY17PO29 PO; -PROCHLORPERAZINE 10 MG/2 ML VIAL. IV; -PROPOFOL 20 ML IV; -SEVOFLURANE 31 TO 60 MINUTES. IH; +SULF1TAB24 PO; +TIZA4TAB PO; -fentaNYL PF VIAL 100 MCG/2 ML VIAL; -fentaNYL PF VIAL 100 MCG/2 ML VIAL IV
--- NOTE | 2018-08-07 08:29 | RAD ---
Limited abdominal ultrasound, 08/07/2018: HISTORY: Left lower quadrant mass The area of clinical concern in the left lower quadrant was carefully scanned. There is a 10.9 x 10.7 x 6.0 cm fluid collection in this region. There are low level internal echoes compatible with minimal debris. No internal color flow is evident. Its margins are smooth. Much of this process appears to lie in the abdominal wall. Its relationship to other structures is not clearly defined on these limited scans. CT scanning is suggested for further evaluation, if not already performed elsewhere. Electronically signed by: Arnaldo Quintanilla MD (08/07/2018 8:25 AM) [facility]
== END | disposition home or self-care (01) ==
LOC: MERGE 07:00 → US 07:00
PROVIDERS: ATTEND Surgery
DX: R19.04 Left lower quadrant abdominal swelling, mass and lump (principal)
CPT/HCPCS: 76705

== ENCOUNTER 2018-08-16 09:16 | Day surgery (SDC) | payer OTHER ==
[~2018-08-16] VITALS: Ht 182.9 cm; Wt 127.0 kg
[~2018-08-16 09:16] MED LIST changes: -DOCU-150 PO; +HYDROmorphone 2 MG/ML VIAL IV PRN; +IV RINGERS,LACTATED 1000ML 1,000 ML IV SCH; +LIDOCAINE 1% PF 2 ML VIAL. ID PRN; +MORPHINE SULFATE 2 MG/ML VIAL. IV PRN; +ONDANSETRON PF 4 MG/2 ML VIAL. IV PRN; +PROCHLORPERAZINE 10 MG/2 ML VIAL. IV PRN; +fentaNYL PF VIAL 100 MCG/2 ML VIAL IV PRN
[2018-08-16] MEDS ORDERED: BUPIVAC MPF-EPI 0.5%-1:200000 30 ML VIAL. ONE (10:00)
[2018-08-16] MEDS ORDERED: PROPOFOL 20 ML IV ONE ×2 (10:50→12:20)
[2018-08-16] MEDS ORDERED: LIDOCAINE 2% PF Vial for OR 5 ML VIAL. ONE (10:50)
[2018-08-16] MEDS ORDERED: ROCURONIUM 50 MG/5 ML VIAL. ONE (10:50)
[2018-08-16] MEDS ORDERED: fentaNYL PF VIAL 100 MCG/2 ML VIAL ONE ×4 (10:50→12:53)
[2018-08-16] MEDS ORDERED: SUCCINYLCHOLINE 200 MG/10 ML VIAL. ONE (10:55)
[2018-08-16] MEDS ORDERED: DEXAMETHASONE SOD PHOS 20 MG/5 ML VIAL. ONE (11:29)
[2018-08-16] MEDS ORDERED: ONDANSETRON PF 4 MG/2 ML VIAL. ONE (11:29)
[2018-08-16] MEDS ORDERED: KETOROLAC 30 MG/ML INJ FOR OR. INJ ONE (11:29)
[2018-08-16] MEDS ORDERED: SEVOFLURANE 31 TO 60 MINUTES. IH ONE (11:29)
--- NOTE | 2018-08-16 12:32 | PDOC ---
BRIEF OPERATIVE NOTE Date: Aug 16, 2018 Pre-Op Diagnosis recurrent abdominal wall hematoma Post-Op Diagnosis same Procedure Performed excision Surgeon Augusto Anesthesia Type: General Blood Loss 25cc IV Fluid 800cc Specimens Obtained skin and subcutaneous mass [id number] cm removed intact Findings large fluid filled mass Complications none ANALI CHANEL MD Aug 16, 2018 12:32
--- NOTE | 2018-08-16 12:33 | DISCH ---
DISCHARGE INSTRUCTIONS Condition on Discharge Condition on Discharge: Stable Activity After Discharge Activity Instructions for Disc: Resume previous activity, Activity as tolerated , Avoid exertion Lifting Instructions after Dis: No heavy lifting Exercise Instruction after Dis: Progress as tolerated Driving Instructions after Dis: Do not drive today Diet after Discharge Diet after Discharge: Regular Wound Incision Care Wound/Incision Care: Ice to area for comfort Other wound/incision instructi: february shower Monday Follow-Up Follow up with: Augusto ten days ANLAI CHANEL MD Aug 16, 2018 12:33
[2018-08-16] MEDS ORDERED: DOCU-150 PO (12:43)
[2018-08-16] MEDS ORDERED: OXYC-327 PO (12:44)
[2018-08-16] MEDS: fentaNYL PF VIAL 100 MCG/2 ML VIAL IV PRN ×4 (12:49→13:13)
[2018-08-16] MEDS ORDERED: oxyCODONE/APAP 7.5/325 1 TAB TABLET PO ONE (13:30)
[2018-08-16] MEDS ORDERED: MORPHINE SULFATE 2 MG/ML VIAL. ONE (13:36)
[2018-08-16 14:25] VITALS: BP 138/80
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
--- NOTE | 2018-08-20 23:07 | PATHOLOGY ---
[facility] Accession Number: [id number] . 01 Material submitted: . SKIN/SUBCUTANEOUS MASS, LEFT LOWER QUADRANT ABDOMEN . 01 Clinical history: . Left lower quadrant mass . 02 Diagnosis: "Skin/subcutaneous mass LLQ abdomen", excision: - Skin and subcutaneous tissue with dermal fibrosis consistent with scar, previous biopsy site changes and localized cyst wall showing fibrosis, fat necrosis and dystrophic calcifications. (See comment) . (CLW:at;08/20/2018) QTA/08/20/2018 . 02 Comment: No epithelial cyst wall lining is identified. No malignancy is seen. The patient has a history of "organizing hematoma/seroma" from a previous left lower quadrant abdominal mass excision ([id number]). The current findings appear similar. Clinical correlations recommended. . (CLW:at;08/20/2018) . 02 Electronically signed: . Lynette Ryan MD, Pathologist NPI- [id number] . 01 Gross description: . The specimen is received in formalin, labeled "Shruthi Kelly JrPamela, skin and subcutaneous mass LLQ abdomen". Received is a segment of fluid-filled capsular-appearing tissue with attached yellow-vieira lobulated tissue measuring 11.5 x 9.8 x 7.2 cm in greatest mentions. There is an attached ellipse of light brown skin measuring 11.3 x 3.5 x 1.1 cm with a linear well-healed, wrinkled scar measuring 10.5 cm in length by up to 0.5 cm in diameter. Sectioning reveals a unilocular cystic structure measuring 9.2 cm in maximum dimensions filled with blood-tinged fluid as well as blood coagulum. The cyst wall is predominantly smooth in appearance with several fibrous-like excrescences ranging in size from 1.1 to 2.3 cm. The specimen is submitted representatively in cassettes A1 through A5. (CAA; 08/17/2018) QAC/QAC . 02 Pathologist provided ICD-10: L90.5 . 02 CPT . 732868 Specimen Comment: A courtesy copy of this report has been sent to Specimen Comment: [phone], . Specimen Comment: Report sent to / DR OSBORNE Performed at: 01 [facility] [address] [place] [address] [id number] MD Juan Martin MD Phone: [phone] Performed at: 02 [facility] [address] [place] [address] [id number] MD Louie Lovett MD Phone: [phone]
== END 2018-08-16 14:25 | disposition home or self-care (01) ==
LOC: SURG 09:16
PROVIDERS: ATTEND Surgery
DX: L76.32 Postprocedural hematoma of skin and subcutaneous tissue following other procedure (principal); L90.5 Scar conditions and fibrosis of skin; I10 Essential (primary) hypertension; G47.33 Obstructive sleep apnea (adult) (pediatric); G89.29 Other chronic pain; Z90.49 Acquired absence of other specified parts of digestive tract; Z79.899 Other long term (current) drug therapy; Z98.84 Bariatric surgery status; Z98.890 Other specified postprocedural states; Z87.891 Personal history of nicotine dependence; Z88.0 Allergy status to penicillin
CPT/HCPCS: 10140; 88304; A7015; J0330; J1100; J1885; J1956; J2001; J2270; J2405; J2704; J3010; J3490

== ENCOUNTER 2019-01-18 21:51 | Emergency (ER) | payer OTHER ==
[~2019-01-18] VITALS: Ht 182.9 cm; Wt 127.0 kg
[~2019-01-18 21:51] MED LIST changes: +DOCU-150 PO; +HYDR-3135 PO; -HYDR-963 PO; -HYDROmorphone 2 MG/ML VIAL IV PRN; -IV RINGERS,LACTATED 1000ML 1,000 ML IV SCH; -LIDOCAINE 1% PF 2 ML VIAL. ID PRN; -MORPHINE SULFATE 2 MG/ML VIAL. IV PRN; -ONDANSETRON PF 4 MG/2 ML VIAL. IV PRN; -OXYC-327 PO; +OXYC1TAB19 PO; -PROCHLORPERAZINE 10 MG/2 ML VIAL. IV PRN; -fentaNYL PF VIAL 100 MCG/2 ML VIAL IV PRN
[2019-01-18 22:15] LABS: BASO % 1 % (0-3); EOS # 0.1 x10^3/uL (0.0-0.7); EOS % 2 % (0-3); HEMATOCRIT 37.2 % (39.0-53.0); HEMOGLOBIN 11.9 g/dL (13.0-17.5); LYMPH # 1.6 x10^3/uL (1.0-4.8); LYMPH % 34 % (24-48); MEAN CORPUSCULAR HEMOGLOBIN 25 pg (25-35); MEAN CORPUSCULAR HGB CONC 32 g/dL (31-37); MEAN CORPUSCULAR VOLUME 78 fL (79-100); MONO # 0.4 x10^3/uL (0.0-1.1); MONO % 8 % (0-9); NEUT # 2.5 x10^3uL (1.8-7.7); NEUT % 55 % (31-73); PLATELET COUNT 206 x10^3/uL (140-400); RED CELL DISTRIBUTION WIDTH 13.4 % (11.5-14.5); WHITE BLOOD COUNT 4.6 x10^3/uL (4.0-11.0)
[2019-01-18] MEDS ORDERED: IV NORMAL SALINE 1000ML BAG 1,000 ML IV SCH (22:15)
[2019-01-18] MEDS ORDERED: NALOXONE 0.4 MG/ML VIAL. IV ONE (22:15)
--- NOTE | 2019-01-18 22:22 | PHYS DOC ---
Past Medical History Past Medical History: Hypertension Additional Past Medical Histor: SLEEP APNEA,ABSCESSES MULTIPLE W/I&D, CHRONIC PAIN Past Surgical History: No Surgical History Additional Past Surgical Histo: PILONIDAL CYST REMOVAL X 3 Alcohol Use: None Drug Use: None Adult General Chief Complaint Chief Complaint: SUICDAL IDEATION HPI HPI Patient is a 38-year-old male who presents with reported suicidal ideations and suicide attempt after having taken a handful of oxycodone. Patient took an estimated 10-20 tablets. Patient reportedly had mother who recently and has been very depressed ever since. Additional history is limited as patient is very somnolent. Review of Systems Review of Systems Constitutional: Positive fever[] Respiratory: Denies cough or shortness of breath [] Cardiovascular: No additional information not addressed in HPI [] GI: No reported vomiting[] Neurologic: Positive decreased bowel status changes [] Unable to fully assess review of systems due to decreased mental status associated with overdose. Current Medications Current Medications Current Medications Medications (Trade) Dose Ordered Sig/Herbie Start Time Stop Time Status Last Admin Dose Admin Naloxone HCl (Narcan) 0.8 mg 1X ONCE 01/18/19 22:15 01/18/19 22:16 DC 01/18/19 22:22 0.8 MG Sodium Chloride 1,000 ml @ 100 mls/hr Q10H 01/18/19 22:15 01/19/19 08:14 01/18/19 22:22 100 MLS/HR Allergies Allergies Allergies Coded Allergies Type Severity Reaction Last Updated Verified Penicillins Allergy Intermediate Rash 08/15/18 Yes Physical Exam Physical Exam Constitutional: Well developed, well nourished, positive decreased mentation, readily responsive to painful stimuli. [] HENT: Normocephalic, atraumatic, bilateral external ears normal, oropharynx moist, no oral exudates, nose normal. [] Eyes: Pupils are pinpoint, conjunctiva normal, no discharge. [] Neck: Normal range of motion, no tenderness, supple. [] Cardiovascular: Regular rate and rhythm[] Lungs & Thorax: Bilateral breath sounds clear to auscultation [] Abdomen: Bowel sounds normal, soft, no tenderness. [] Skin: Warm, dry, no erythema, no rash. [] Extremities: No tenderness, no cyanosis, no clubbing, ROM intact. [] Neurologic: Patient very somnolent but arousable to painful stimuli, no focal deficits noted. [] Current Patient Data Vital Signs Vital Signs Date Time Temp Pulse Resp B/P (MAP) Pulse Ox O2 Delivery O2 Flow Rate FiO2 01/18/19 22:57 78 14 131/78 (95) 100 01/18/19 22:31 100.1 Room Air 100.1 Lab Values Laboratory Tests Test 01/18/19 22:09 White Blood Count 4.6 x10^3/uL (4.0-11.0) Red Blood Count 4.80 x10^6/uL (4.30-5.70) Hemoglobin 11.9 g/dL (13.0-17.5) L Hematocrit 37.2 % (39.0-53.0) L Mean Corpuscular Volume 78 fL (79-100) L Mean Corpuscular Hemoglobin 25 pg (25-35) Mean Corpuscular Hemoglobin Concent 32 g/dL (31-37) Red Cell Distribution Width 13.4 % (11.5-14.5) Platelet Count 206 x10^3/uL (140-400) Neutrophils (%) (Auto) 55 % (31-73) Lymphocytes (%) (Auto) 34 % (24-48) Monocytes (%) (Auto) 8 % (0-9) Eosinophils (%) (Auto) 2 % (0-3) Basophils (%) (Auto) 1 % (0-3) Neutrophils # (Auto) 2.5 x10^3uL (1.8-7.7) Lymphocytes # (Auto) 1.6 x10^3/uL (1.0-4.8) Monocytes # (Auto) 0.4 x10^3/uL (0.0-1.1) Eosinophils # (Auto) 0.1 x10^3/uL (0.0-0.7) Basophils # (Auto) 0.0 x10^3/uL (0.0-0.2) Sodium Level 140 mmol/L (136-145) Potassium Level 3.3 mmol/L (3.5-5.1) L Chloride Level 103 mmol/L (98-107) Carbon Dioxide Level 24 mmol/L (21-32) Anion Gap 13 (6-14) Blood Urea Nitrogen 6 mg/dL (8-26) L Creatinine 1.2 mg/dL (0.7-1.3) Estimated GFR (Cockcroft-Gault) 82.0 Glucose Level 120 mg/dL (70-99) H Calcium Level 8.9 mg/dL (8.5-10.1) Magnesium Level 1.6 mg/dL (1.8-2.4) L Total Bilirubin 0.4 mg/dL (0.2-1.0) Direct Bilirubin 0.1 mg/dL (0.0-0.2) Aspartate Amino Transferase (AST) 12 U/L (15-37) L Alanine Aminotransferase (ALT) 14 U/L (16-63) L Alkaline Phosphatase 171 U/L (46-116) H Total Protein 6.8 g/dL (6.4-8.2) Albumin 3.4 g/dL (3.4-5.0) Salicylates Level 4.9 mg/dL (2.8-20.0) Salicylate Last Dose Date Unk Salicylate Last Dose Time Unk Acetaminophen Level < 2 mcg/ml (10-30) L Acetaminophen Last Dose Date Unk Acetaminophen Last Dose Time Unk Ethyl Alcohol Level < 10 mg/dL (0-10) Laboratory Tests 01/18/19 22:09 Laboratory Tests 01/18/19 22:09 EKG EKG [] Radiology/Procedures Radiology/Procedures [] Course & Med Decision Making Course & Med Decision Making Pertinent Labs and Imaging studies reviewed. (See chart for details) Patient has been seen by Andree from PAT team and patient has been safety contracted to follow up as an outpatient. Initial plan for patient was to be admitted into the facility has patient did require a dose of Narcan reversal of medication. At this point given that patient has been cleared from mental health standpoint, patient is electing to sign out AGAINST MEDICAL ADVICE in order to go home. Patient acknowledges risk associated with discharging AGAINST MEDICAL ADVICE should medication that he had taken decrease respiratory drive, thus increasing risk for injury and possibly even . Dragon Disclaimer Dragon Disclaimer This electronic medical record was generated, in whole or in part, using a voice recognition dictation system. Departure Departure Impression: Primary Impression: Opiate overdose Additional Impression: Suicidal ideation Disposition: AGAINST MEDICAL ADVICE Condition: IMPROVED Referrals: ABIGAIL OSBORNE (PCP) Problem Qualifiers Primary Impression: Opiate overdose Encounter type: initial encounter Injury intent: intentional self-harm Qualified Codes: T40.602A - Poisoning by unspecified narcotics, intentional self-harm, initial encounter CLEOPATRA ZUNIGA Jr. DO Jan 18, 2019 22:22
[2019-01-18 22:24] LABS: CALCIUM 8.9 mg/dL (8.5-10.1); CREATININE 1.2 mg/dL (0.7-1.3); POTASSIUM 3.3 mmol/L (3.5-5.1)
[2019-01-18 22:30] LABS: ALBUMIN 3.4 g/dL (3.4-5.0); DIRECT BILIRUBIN 0.1 mg/dL (0.0-0.2); MAGNESIUM 1.6 mg/dL (1.8-2.4); TOTAL BILIRUBIN 0.4 mg/dL (0.2-1.0); TOTAL PROTEIN 6.8 g/dL (6.4-8.2)
[2019-01-18 22:31] LABS: ACETAMIN < 2 mcg/ml (10-30); ETHANOL < 10 mg/dL (0-10); SALIC 4.9 mg/dL (2.8-20.0)
[2019-01-18] MEDS ORDERED: ONDANSETRON PF 4 MG/2 ML VIAL. IV PRN (23:15)
[2019-01-19 01:25] VITALS: BP 140/78
--- NOTE | 2019-01-19 08:46 | EKG ---
[facility] [address] [place] [address] Test Date: 2019-01-18 Test Time: 21:59:34 Pat Name: STEVEN MACHADO Department: Room: Gender: M Test Lead: : 1980 Requested By: CLEOPATRA ZUNIGA Order Number: [id number] Reading MD: Ayaz Lancaster MD Measurements Intervals [place] Rate: 95 P: 39 SC: 168 QRS: 13 QRSD: 92 T: 32 QT: 316 QTc: 400 Interpretive Statements SINUS RHYTHM Electronically Signed On 01-22-2019 15:13:37 CDT by Ayaz Lancaster MD
== END 2019-01-19 01:30 | disposition left against medical advice (07) ==
LOC: ER 21:51 → 2 SOUTH 23:08 → UNDOADMIN 23:08 → ER 01-19 01:30
DX: T40.2X2A Poisoning by other opioids, intentional self-harm, initial encounter (principal); R40.0 Somnolence; F32.9 Major depressive disorder, single episode, unspecified; R45.851 Suicidal ideations; I10 Essential (primary) hypertension; Z88.0 Allergy status to penicillin; Y92.89 Other specified places as the place of occurrence of the external cause
CPT/HCPCS: 36415; 80048; 80076; 80329; 83735; 85025; 93005; 96374; 99284; G0480; J2310; J7030

== ENCOUNTER 2019-02-26 11:07 | Emergency (ER) | payer OTHER, SELFPAY ==
[~2019-02-26] VITALS: Ht 182.9 cm; Wt 123.4 kg
[2019-02-26] MEDS ORDERED: CYCLOBENZAPRINE 10 MG TABLET. PO ONE (11:30)
[2019-02-26] MEDS ORDERED: HYDROcodone/APAP 5/325MG 1 TAB TABLET PO ONE (11:30)
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
--- NOTE | 2019-02-26 12:14 | RAD ---
3 views left hand dated 02/26/2019. No comparison available. Clinical data indication: Index finger bruising and pain. FINDINGS: 3 views left hand show normal bony alignment. No displaced fracture. No acute osseous or articular abnormality. No periostitis or bone destruction. IMPRESSION: No acute radiographic abnormality. Electronically signed by: Swapnil Molina MD (02/26/2019 12:12 PM) [id number]
[2019-02-26] MEDS ORDERED: CYCL10TA2 PO (12:45)
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
[2019-02-26 12:56] VITALS: BP 141/83
== END 2019-02-26 12:56 | disposition home or self-care (01) ==
LOC: ER 11:07
DX: S13.8XXA Sprain of joints and ligaments of other parts of neck, initial encounter (principal); S63.691A Other sprain of left index finger, initial encounter; R51 Headache; I10 Essential (primary) hypertension; G89.29 Other chronic pain; Z90.49 Acquired absence of other specified parts of digestive tract; F17.200 Nicotine dependence, unspecified, uncomplicated; Z88.0 Allergy status to penicillin; V43.52XA Car driver injured in collision with other type car in traffic accident, initial encounter; Y93.89 Activity, other specified; Y92.410 Unspecified street and highway as the place of occurrence of the external cause; Y99.8 Other external cause status
CPT/HCPCS: 70450; 72125; 73130; 99284

== ENCOUNTER 2019-11-15 06:58 | Emergency (ER) | payer SELFPAY ==
[~2019-11-15] VITALS: Ht 182.9 cm; Wt 109.5 kg
[~2019-11-15 06:58] MED LIST changes: +LISI1TAB23 PO; -LISI1TAB3 PO; -TIZA4TAB PO; +TIZA4TAB2 PO
--- NOTE | 2019-11-15 07:29 | PHYS DOC ---
Past Medical History Past Medical History: Hypertension, Other Additional Past Medical Histor: SLEEP APNEA,ABSCESSES MULTIPLE W/I&D,CHRONIC PAIN,C2/C3 FX/HEMATOMA Past Surgical History: Cholecystectomy, Other Additional Past Surgical Histo: PILONIDAL CYST REMOVAL X 3,GASTRIC BYPASS,A BSCESS X 3 Alcohol Use: None Drug Use: None Adult General Chief Complaint Chief Complaint: HEAD INJURY/TRAUMA HPI HPI Patient is a 39 year old male who presented to ER today for evaluation of headache, right-sided facial pain, neck pain after he fell out of his bed this morning, landed on his right side face and head. Patient also complaints of right hand pain when he hit the floor with his right hand. He is not on blood thinner, denies any loss of consciousness. Patient had been able open and close mouth with pain. he denies any back pain, no elbow pain, no pelvic pain, no shoulder pain. All other ROS is negative unless otherwise noted in HPI Review of Systems Review of Systems See above Allergies Allergies Allergies Coded Allergies Type Severity Reaction Last Updated Verified Penicillins Allergy Intermediate Rash 08/15/18 Yes Physical Exam Physical Exam See above Constitutional: Well developed, well nourished, no acute distress, non-toxic appearance. [] HENT: Normocephalic,Right side forehead and temporal area contusion with tender to palpation, no open wound. LOWER LIP CONTUSION, NO LACERATION, NO TRISMUS, RIGHT SIDE FACIAL CONTUSION, TENDER TO PALPATION. NO DENTAL INJURY, bilateral external ears normal, oropharynx moist, no oral exudates, nose normal. [] Eyes: PERRLA, EOMI, conjunctiva normal, no discharge. [] Neck: Normal range of motion, no tenderness, supple, no stridor. [] Cardiovascular:Heart rate regular rhythm, no murmur [] Lungs & Thorax: Bilateral breath sounds clear to auscultation [] Abdomen: Bowel sounds normal, soft, no tenderness, no masses, no pulsatile masses. [] Skin: Warm, dry, no erythema, no rash. [] Back: No tenderness, no CVA tenderness. [] Extremities, no cyanosis, no clubbing, ROM intact, no edema. Right side hand swelling, tender to palpation, NO snuffbox tenderness, no scaphoid area tenderness to palpation. The swelling and tender is on the ulnar side of right hand. Neurologic: Alert and oriented X 3, normal motor function, normal sensory function, no focal deficits noted. [] Psychologic: Affect normal, judgement normal, mood normal. [] Current Patient Data Vital Signs Vital Signs Date Time Temp Pulse Resp B/P (MAP) Pulse Ox O2 Delivery O2 Flow Rate FiO2 11/15/19 09:10 70 115/59 (77) 98 Room Air 11/15/19 07:02 98.3 18 98.3 EKG EKG [] Radiology/Procedures Radiology/Procedures [][facility] [address] [place] [address] IMAGING REPORT Signed PATIENT: STEVEN MACHADO ACCOUNT: [id number] : 1980 LOCATION: ER AGE: 39 SEX: M EXAM STATUS: REG ER ORD. PHYSICIAN: AGUILA HERRERA DO REASON: fell out of bed, hit right side head and face on floor PROCEDURE: CT HEAD AND MAXILLOFACIAL WO CT CERVICAL SPINE WO CONTRAST, CT HEAD AND MAXILLOFACIAL WO Date: 11/15/2019 7:31 AM Clinical Indication: Fell out of bed, pain, trauma Comparison: None. Technique: 5 mm axial tomographic images were obtained of the head without contrast. These were viewed on brain and bone windows. Axial helical images of the face were obtained without contrast. Axial and coronal reconstruction was performed. CT imaging of the cervical spine was performed without contrast. Coronal and sagittal reformatted images were performed. One or more of the following dose reduction techniques were utilized: Automated exposure control (AEC), Adjustment of mA and/or kV according to patient size, Use of iterative reconstruction technique such as ASiR, CT scan done according to ALARA and image gently/image wisely CT HEAD FINDINGS: The brain parenchyma is normal in attenuation. No intra- or extra-axial mass or fluid collection. No acute hemorrhage. The ventricles are normal in size, shape, and morphology. The quinn-white matter junction is normal. The basilar cisterns are patent. The mastoid air cells are clear. No aggressive osseous lesion or fracture. CT FACE FINDINGS: There is no acute facial bone fracture. Right maxillary sinus mucus retention cyst. The orbits are normal. The globes are intact. The nasal septum is mostly midline. The ostiomeatal complexes are narrow but patent. CT CERVICAL SPINE FINDINGS: Straightening of the cervical lordosis. No acute fracture. No aggressive lytic or blastic osseous lesion. Mild multilevel degenerative disc height loss. No high-grade spinal canal stenosis or neural foraminal narrowing. The thyroid gland is normal. No cervical lymphadenopathy. The visualized aerodigestive tract is unremarkable. The visualized lung apices are clear. Impression: 1. No acute intracranial process. 2. No acute facial bone fracture. 3. No acute osseous abnormality of the cervical spine. Electronically signed by: Fausto Trujillo MD (11/15/2019 7:54 AM) [facility] DICTATED and SIGNED BY: FAUSTO TRUJILLO MD DATE: 11/15/19 0754 [facility] [address] [facility] [place] [address] IMAGING REPORT Signed PATIENT: STEVEN MACHADO ACCOUNT: [id number] : 1980 LOCATION: ER AGE: 39 SEX: M EXAM STATUS: REG ER ORD. PHYSICIAN: AGUILA HERRERA DO REASON: fell out of bed, landed on right hand, pain and swelling PROCEDURE: HAND RIGHT 3V HAND RIGHT 3V DATE: 11/15/2019 7:21 AM INDICATION: Fell out of bed, landed on hand, hand pain COMPARISON: None. FINDINGS: Bones: Comminuted mildly displaced fracture of the distal fifth metacarpal with volar angulation. Remote ulnar styloid fracture. Remote distal radius fracture status post ORIF. Joints: The joint spaces are normal. Miscellaneous: None. IMPRESSION: Comminuted fifth distal metacarpal fracture Electronically signed by: Fausto Trujillo MD (11/15/2019 7:36 AM) [facility] [place] DICTATED and SIGNED BY: FAUSTO TRUJILLO MD DATE: 11/15/19 0736 Course & Med Decision Making Course & Med Decision Making Pertinent Labs and Imaging studies reviewed. (See chart for details) [] Dragon Disclaimer Dragon Disclaimer This electronic medical record was generated, in whole or in part, using a voice recognition dictation system. Departure Departure Impression: Primary Impression: Head contusion Additional Impression: Fracture, metacarpal Disposition: 01 HOME, SELF-CARE Condition: STABLE Referrals: GUEVARA DOCKERY II, MD PLEASE FOLLOW UP WITH THIS ORTHOPEDIC SURGEON ON MONDAY. Patient Instructions: Contusion, Hand Fracture, Metacarpals, Head Injury, Adult Additional Instructions: Thank you for visiting our Emergency Department. We appreciate you trusting us with your care. If any additional problems come up don't hesitate to return to visit us. Please follow up with your primary care provider so they can plan additional care if needed and know about the problem that you had. If symptoms worsen come back to the Emergency Department. Any concerning symptoms that start such as chest pain, shortness of air, weakness or numbness on one side of the body, running high fevers or any other concerning symptoms return to the ER. Scripts Ibuprofen (IBUPROFEN) 800 Mg Tablet 800 MG PO PRN Q8HRS PRN for INFLAMMATION, #30 TAB Prov: AGUILA HERRERA DO 11/15/19 Splinting Splinting : Location: RIGHT HAND Hand-Made Type: orthoglass Splint: ulnar Pre-Proc Neuro Vasc Exam: normal Post-Proc Neuro Vasc Exam: normal Problem Qualifiers AGUILA HERRERA DO Nov 15, 2019 07:29
--- NOTE | 2019-11-15 07:39 | RAD ---
HAND RIGHT 3V DATE: 11/15/2019 7:21 AM INDICATION: Fell out of bed, landed on hand, hand pain COMPARISON: None. FINDINGS: Bones: Comminuted mildly displaced fracture of the distal fifth metacarpal with volar angulation. Remote ulnar styloid fracture. Remote distal radius fracture status post ORIF. Joints: The joint spaces are normal. Miscellaneous: None. IMPRESSION: Comminuted fifth distal metacarpal fracture Electronically signed by: Chinedu Trujillo MD (11/15/2019 7:36 AM) [facility]
--- NOTE | 2019-11-15 07:56 | RAD ---
CT CERVICAL SPINE WO CONTRAST, CT HEAD AND MAXILLOFACIAL WO Date: 11/15/2019 7:31 AM Clinical Indication: Fell out of bed, pain, trauma Comparison: None. Technique: 5 mm axial tomographic images were obtained of the head without contrast. These were viewed on brain and bone windows. Axial helical images of the face were obtained without contrast. Axial and coronal reconstruction was performed. CT imaging of the cervical spine was performed without contrast. Coronal and sagittal reformatted images were performed. One or more of the following dose reduction techniques were utilized: Automated exposure control (AEC), Adjustment of mA and/or kV according to patient size, Use of iterative reconstruction technique such as ASiR, CT scan done according to ALARA and image gently/image wisely CT HEAD FINDINGS: The brain parenchyma is normal in attenuation. No intra- or extra-axial mass or fluid collection. No acute hemorrhage. The ventricles are normal in size, shape, and morphology. The quinn-white matter junction is normal. The basilar cisterns are patent. The mastoid air cells are clear. No aggressive osseous lesion or fracture. CT FACE FINDINGS: There is no acute facial bone fracture. Right maxillary sinus mucus retention cyst. The orbits are normal. The globes are intact. The nasal septum is mostly midline. The ostiomeatal complexes are narrow but patent. CT CERVICAL SPINE FINDINGS: Straightening of the cervical lordosis. No acute fracture. No aggressive lytic or blastic osseous lesion. Mild multilevel degenerative disc height loss. No high-grade spinal canal stenosis or neural foraminal narrowing. The thyroid gland is normal. No cervical lymphadenopathy. The visualized aerodigestive tract is unremarkable. The visualized lung apices are clear. Impression: 1. No acute intracranial process. 2. No acute facial bone fracture. 3. No acute osseous abnormality of the cervical spine. Electronically signed by: Chinedu Trujillo MD (11/15/2019 7:54 AM) [facility]
[2019-11-15] MEDS ORDERED: IBUP-1060 PO (10:28)
[2019-11-15 10:35] VITALS: BP 123/71
== END 2019-11-15 10:35 | disposition home or self-care (01) ==
LOC: ER 06:58
DX: S62.316A Displaced fracture of base of fifth metacarpal bone, right hand, initial encounter for closed fracture (principal); S00.531A Contusion of lip, initial encounter; R60.9 Edema, unspecified; M79.641 Pain in right hand; M54.2 Cervicalgia; R51 Headache; I10 Essential (primary) hypertension; G89.29 Other chronic pain; Z90.49 Acquired absence of other specified parts of digestive tract; Z98.890 Other specified postprocedural states; Z88.0 Allergy status to penicillin; W19.XXXA Unspecified fall, initial encounter; Y93.89 Activity, other specified; Y92.89 Other specified places as the place of occurrence of the external cause; Y99.8 Other external cause status
CPT/HCPCS: 29125; 70450; 70486; 72125; 73130; 99284

== ENCOUNTER 2019-12-09 11:17 | Emergency (ER) | payer SELFPAY ==
[~2019-12-09 11:17] MED LIST changes: +IBUP-1060 PO
== END 2019-12-09 13:52 | disposition left against medical advice (07) ==
LOC: ER 11:17
DX: R10.9 Unspecified abdominal pain (principal); Z53.21 Procedure and treatment not carried out due to patient leaving prior to being seen by health care provider

== ENCOUNTER 2020-03-04 13:16 | Observation (INO) | payer SELFPAY ==
[~2020-03-04] VITALS: Ht 182.9 cm; Wt 111.0 kg
[2020-03-04] MEDS ORDERED: NALOXONE 2 MG/2 ML DISP.SYRIN. IV ONE (13:30)
[2020-03-04 13:40] LABS: BASO # 0.1 x10^3/uL (0.0-0.2); BASO % 2 % (0-3); EOS # 0.1 x10^3/uL (0.0-0.7); EOS % 4 % (0-3); HEMATOCRIT 34.8 % (39.0-53.0); LYMPH # 1.5 x10^3/uL (1.0-4.8); LYMPH % 43 % (24-48); MEAN CORPUSCULAR HEMOGLOBIN 25 pg (25-35); MEAN CORPUSCULAR HGB CONC 32 g/dL (31-37); MEAN CORPUSCULAR VOLUME 78 fL (79-100); MONO # 0.4 x10^3/uL (0.0-1.1); MONO % 13 % (0-9); NEUT # 1.3 x10^3/uL (1.8-7.7); NEUT % 39 % (31-73); PLATELET COUNT 226 x10^3/uL (140-400); RED BLOOD COUNT 4.49 x10^6/uL (4.30-5.70); WHITE BLOOD COUNT 3.4 x10^3/uL (4.0-11.0)
[2020-03-04 13:44] LABS: BARBITURATES NEG (NEG); BENZODIAZEPINES POS (NEG); CANNABINOIDS POS (NEG); COCAINE POS (NEG); METHADONE NEG (NEG); OPIATES POS (NEG); PHENCYCLIDINE POS (NEG)
[2020-03-04 13:47] LABS: AMPHETAMINE/METHAMPHETAMINE POS (NEG)
[2020-03-04 13:48] LABS: CALCIUM 8.1 mg/dL (8.5-10.1); CREATININE 1.1 mg/dL (0.7-1.3); GFR 90.2; POTASSIUM 4.2 mmol/L (3.5-5.1)
[2020-03-04 13:54] LABS: ALBUMIN 3.3 g/dL (3.4-5.0); ALBUMIN/GLOBULIN RATIO 0.9 (1.0-1.7); MAGNESIUM 2.1 mg/dL (1.8-2.4); TOTAL BILIRUBIN 0.3 mg/dL (0.2-1.0); TOTAL PROTEIN 7.1 g/dL (6.4-8.2)
--- NOTE | 2020-03-04 13:57 | PHYS DOC ---
Past Medical History Past Medical History: Hypertension, Other Additional Past Medical Histor: SLEEP APNEA,ABSCESSES MULTIPLE W/I&D,CHRONIC PAIN,C2/C3 FX/HEMATOMA Past Surgical History: Cholecystectomy, Other Additional Past Surgical Histo: PILONIDAL CYST REMOVAL X 3,GASTRIC BYPASS,ABSCESS X 3 Smoking Status: Current Every Day Smoker Alcohol Use: None Drug Use: None Adult General Chief Complaint Chief Complaint: ALTERED MENTAL STATUS HPI HPI Patient is a 39 year old -[place] male with history of gastric bypass and 800 pound weight loss who presents with altered mental status. Patient states he is somnolent and family remembers report that patient has been being depressed and up for the past 5 days with suspected drug abuse. No report of HI or SI. Patient somnolent but alerts to tactile response. He is hesitant and provides minimal medical history only. Additional history obtained from the patient's estranged .. [] Review of Systems Review of Systems ROS as per HPI All other systems were reviewed and found to be within normal limits, except as documented in this note. Current Medications Current Medications Current Medications Medications (Trade) Dose Ordered Sig/Herbie Start Time Stop Time Status Last Admin Dose Admin Naloxone HCl (Narcan) 2 mg 1X ONCE 03/04/20 13:30 03/04/20 13:31 DC 03/04/20 13:29 2 MG Allergies Allergies Allergies Coded Allergies Type Severity Reaction Last Updated Verified Penicillins Allergy Intermediate Rash 08/15/18 Yes Physical Exam Physical Exam Constitutional: Well developed, well nourished, no acute distress, non-toxic appearance. [] HENT: Normocephalic, atraumatic, bilateral external ears normal, oropharynx moist, nose normal. [] Eyes: PERRLA, EOMI, conjunctiva normal, no discharge. [] Neck: Normal range of motion, no tenderness. [] Cardiovascular:Heart rate regular rhythm, no murmur [] Lungs & Thorax: Bilateral breath sounds clear to auscultation [] Abdomen: Bowel sounds normal, soft, no tenderness. [] Skin: Warm. [] Back: No tenderness. [] Extremities: No tenderness, no edema. [] Neurologic: Somnolent, wakes to tactile stimulation, normal motor function, normal sensory function, no focal deficits noted. [] Psychologic: Affect, anxious, tearful. [] Current Patient Data Vital Signs Vital Signs Date Time Temp Pulse Resp B/P (MAP) Pulse Ox O2 Delivery O2 Flow Rate FiO2 03/04/20 13:18 98.5 96 10 131/69 (89) 97 Room Air 98.5 Lab Values Laboratory Tests Test 03/04/20 13:21 03/04/20 13:22 03/04/20 13:30 Glucose (Fingerstick) 127 mg/dL (70-99) H White Blood Count 3.4 x10^3/uL (4.0-11.0) L Red Blood Count 4.49 x10^6/uL (4.30-5.70) Hemoglobin 11.0 g/dL (13.0-17.5) L Hematocrit 34.8 % (39.0-53.0) L Mean Corpuscular Volume 78 fL (79-100) L Mean Corpuscular Hemoglobin 25 pg (25-35) Mean Corpuscular Hemoglobin Concent 32 g/dL (31-37) Red Cell Distribution Width 15.0 % (11.5-14.5) H Platelet Count 226 x10^3/uL (140-400) Neutrophils (%) (Auto) 39 % (31-73) Lymphocytes (%) (Auto) 43 % (24-48) Monocytes (%) (Auto) 13 % (0-9) H Eosinophils (%) (Auto) 4 % (0-3) H Basophils (%) (Auto) 2 % (0-3) Neutrophils # (Auto) 1.3 x10^3/uL (1.8-7.7) L Lymphocytes # (Auto) 1.5 x10^3/uL (1.0-4.8) Monocytes # (Auto) 0.4 x10^3/uL (0.0-1.1) Eosinophils # (Auto) 0.1 x10^3/uL (0.0-0.7) Basophils # (Auto) 0.1 x10^3/uL (0.0-0.2) Sodium Level 143 mmol/L (136-145) Potassium Level 4.2 mmol/L (3.5-5.1) Chloride Level 107 mmol/L (98-107) Carbon Dioxide Level 28 mmol/L (21-32) Anion Gap 8 (6-14) Blood Urea Nitrogen 13 mg/dL (8-26) Creatinine 1.1 mg/dL (0.7-1.3) Estimated GFR (Cockcroft-Gault) 90.2 BUN/Creatinine Ratio 12 (6-20) Glucose Level 135 mg/dL (70-99) H Calcium Level 8.1 mg/dL (8.5-10.1) L Magnesium Level 2.1 mg/dL (1.8-2.4) Total Bilirubin 0.3 mg/dL (0.2-1.0) Aspartate Amino Transferase (AST) 72 U/L (15-37) H Alanine Aminotransferase (ALT) 36 U/L (16-63) Alkaline Phosphatase 178 U/L (46-116) H Total Protein 7.1 g/dL (6.4-8.2) Albumin 3.3 g/dL (3.4-5.0) L Albumin/Globulin Ratio 0.9 (1.0-1.7) L Ethyl Alcohol Level < 10 mg/dL (0-10) Urine Opiates Screen Pos (NEG) Urine Methadone Screen Neg (NEG) Urine Barbiturates Neg (NEG) Urine Phencyclidine Screen Pos (NEG) Urine Amphetamine/Methamphetamine Pos (NEG) Urine Benzodiazepines Screen Pos (NEG) Urine Cocaine Screen Pos (NEG) Urine Cannabinoids Screen Pos (NEG) Urine Ethyl Alcohol Neg (NEG) Laboratory Tests 03/04/20 13:22 Laboratory Tests 03/04/20 13:22 EKG EKG [EKG: reviewed] Radiology/Procedures Radiology/Procedures [CXR: NAD] Course & Med Decision Making Course & Med Decision Making Pertinent Labs and Imaging studies reviewed. (See chart for details) [Altered mental status/emotional state status likely substance abuse related. History of prior drug overdose. Will admit to the hospitalist service for further evaluation and treatment] Dragon Disclaimer Dragon Disclaimer This electronic medical record was generated, in whole or in part, using a voice recognition dictation system. Departure Departure Impression: Primary Impression: Altered mental status Additional Impression: Polysubstance abuse Disposition: ADMITTED INPATIENT Condition: STABLE Referrals: UNKNOWN PCP NAME (PCP) Problem Qualifiers SANDRA CHERY DO March 04, 2020 13:57
--- NOTE | 2020-03-04 13:59 | EKG ---
[facility] [address] [place] [address] Test Date: 2020-03-04 Test Time: 13:34:08 Pat Name: STEVEN MACHADO Department: Room: Gender: M Sterile Proc Tech: : 1980 Requested By: SANDRA CHERY Order Number: [id number] Reading MD: Catracho De La Garza Measurements Intervals [place] Rate: 88 P: 55 [place]: 156 QRS: 26 QRSD: 92 T: 36 QT: 344 QTc: 420 Interpretive Statements SINUS RHYTHM NORMAL ECG RI6.02 Compared to ECG 01/18/2019 21:59:34 No significant changes Electronically Signed On 03-05-2020 7:59:46 CDT by Catracho De La Garza
--- NOTE | 2020-03-04 14:00 | RAD ---
INDICATION: Chest pain COMPARISON: 03/13/2018 FINDINGS: Single view of chest obtained. Enlarged cardiomediastinal silhouette. Hypoexpanded exam the lungs without focal airspace consolidation. Calcified lymph nodes at mediastinum could be from old granulomatous disease. IMPRESSION: * No focal airspace consolidation or edema. Electronically signed by: Krzysztof Marquez MD (03/04/2020 1:52 PM) [id number]
[2020-03-04 15:14] VITALS: BP 143/61
--- NOTE | 2020-03-04 15:55 | NUR ---
The patient, STEVEN MACHADO, 39 y/o, M admitted by MICHELLE STILES MD, was given written information regarding hospital policies, unit procedures and contact persons. Valuables were checked and left in room with patient. Advised patient POC for polysubstance abuse. Patient stated that he only smoked marijuana and it mustve been laced with other stuff. Patient stated that he's been dealing with personal things and smokes marijuana mostly to help relax him. Pgd and spoke to primary physician who stated patient may discharge later this evening if feeling better. Spoke with patient who said he can arrange a ride around 1900
--- NOTE | 2020-03-04 16:19 | PDOC1 ---
History and Physical Date of Admission Date of Admission DATE: 03/04/20 TIME: 16:15 Source Source: Chart review, Patient History of Present Illness History of Present Illness enoc was brought in by private vehicle, had to be lifted out of the car by hospital staff, could not walk, would not wake up, put on a gurney from the car in the parking lot. He had been smoking weed with new "friends" and they were passing and he was partaking. He denies any other drug usage, but his urine showed almost all drugs. he woke up well from narcan, he suspects that THC may have had fentantyl. Past Medical History Cardiovascular: HTN Pulmonary: Asthma Past Surgical History Past Surgical History: Cholecystectomy, Other (prior gastric bypass, ) Social History Smoke: No ALCOHOL: none Drugs: Marijuana, Other Current Problem List Problem List Problems Medical Problems: (1) Altered mental status Status: Acute (2) Polysubstance abuse Status: Acute Current Medications Current Medications Current Medications Naloxone HCl (Narcan) 2 mg 1X ONCE IV Last administered on 03/04/20at 13:29; Start 03/04/20 at 13:30; Stop 03/04/20 at 13:31; Status DC Active Scripts Active Ibuprofen 800 Mg Tablet 800 Mg PO PRN Q8HRS PRN Cyclobenzaprine Hcl 10 Mg Tablet 1 Tab PO TID Reported Percocet 7.5-325 Mg Tablet (Oxycodone/Acetaminophen) 1 Each Tablet 1 Tab PO QID Stool Softener (Docusate Sodium) 100 Mg Capsule 100 Mg PO BID Lisinopril 10 Mg Tablet 1 Tab PO DAILY Multi-Vitamin Daily (Multivitamin) 1 Each Tablet 1 Each PO Allergies Allergies: Coded Allergies: Penicillins (Verified Allergy, Intermediate, Rash, 08/15/18) ROS General: No: Chills, Night Sweats, Fatigue, Malaise, Appetite, Other PSYCHOLOGICAL ROS: No: Anxiety, Behavioral Disorder, Concentration difficultie, Decreased libido, Depression, Disorientation, Hallucinations, Hostility, Irritablity, Memory difficulties, Mood Swings, Obsessive thoughts, Physical abuse, Sexual abuse, Sleep disturbances, Suicidal ideation, Other Eyes: No Blurry vision, No Decreased vision, No Double vision, No Dry eyes, No Excessive tearing, No Eye Pain, No Itchy Eyes, No Loss of vision, No Photophobia, No Scotomata, No Uses contacts, No Uses glasses, No Other HEENT: No: Heacaches, Visual Changes, Hearing change, Nasal congestion, Nasal discharge, Oral lesions, Sinus pain, Sore Throat, Epistaxis, Sneezing, Snoring, Tinnitus, Vertigo, Vocal changes, Other Respiratory: No: Cough, Hemoptysis, Orthopnea, Pleuritic Pain, Shortness of breath, SOB with excertion, Sputum Changes, Stridor, Tachypnea, Wheezing, Other Cardiovascular: No Chest Pain, No Palpitations, No Orthopnea, No Paroxysmal Noc. Dyspnea, No Edema, No Lt Headedness, No Other Gastrointestinal: No Nausea, No Vomiting, No Abdominal Pain, No Diarrhea, No Constipation, No Melena, No Hematochezia, No Other Genitourinary: No Dysuria, No Frequency, No Incontinence, No Hematuria, No Retention, No Discharge, No Urgency, No Pain, No Flank Pain, No Other, No , No , No , No , No , No , No Musculoskeletal: No Gait Disturbance, No Joint Pain, No Joint Stiffness, No Joint Swelling, No Muscle Pain, No Muscular Weakness, No Pain In:, No Swelling In:, No Other Neurological: No Behavorial Changes, No Bowel/Bladder ControlChng, No Confusion, No Dizziness, No Gait Disturbance, No Headaches, No Impaired Coord/balance, No Memory Loss, No Numbness/Tingling, No Seizures, No Speech Problems, No Tremors, No Visual Changes, No Weakness, No Other Skin: No Dry Skin, No Eczema, No Hair Changes, No Lumps, No Mole Changes, No Mottling, No Nail Changes, No Pruritus, No Rash, No Skin Lesion Changes, No Other, No Acne Physical Exam General: Alert, Cooperative, No acute distress HEENT: Atraumatic, PERRLA, EOMI, Mucous membr. moist/pink Lungs: Clear to auscultation, Normal air movement Heart: S1S2, no gallops Abdomen: Normal bowel sounds, Soft Rectal Exam: not examined Extremities: No cyanosis, No edema, Normal pulses Skin: No rashes, No significant lesion Neuro: Normal gait, Normal speech, Normal tone, Sensation intact Psych/Mental Status: Mood NL Vitals Vitals Vital Signs Date Time Temp Pulse Resp B/P (MAP) Pulse Ox O2 Delivery O2 Flow Rate FiO2 5/20/20 15:14 97.8 63 16 143/61 (88) 100 Room Air 97.8 Labs Labs Laboratory Tests Test 03/04/20 13:21 03/04/20 13:22 03/04/20 13:30 Glucose (Fingerstick) 127 mg/dL (70-99) White Blood Count 3.4 x10^3/uL (4.0-11.0) Red Blood Count 4.49 x10^6/uL (4.30-5.70) Hemoglobin 11.0 g/dL (13.0-17.5) Hematocrit 34.8 % (39.0-53.0) Mean Corpuscular Volume 78 fL (79-100) Mean Corpuscular Hemoglobin 25 pg (25-35) Mean Corpuscular Hemoglobin Concent 32 g/dL (31-37) Red Cell Distribution Width 15.0 % (11.5-14.5) Platelet Count 226 x10^3/uL (140-400) Neutrophils (%) (Auto) 39 % (31-73) Lymphocytes (%) (Auto) 43 % (24-48) Monocytes (%) (Auto) 13 % (0-9) Eosinophils (%) (Auto) 4 % (0-3) Basophils (%) (Auto) 2 % (0-3) Neutrophils # (Auto) 1.3 x10^3/uL (1.8-7.7) Lymphocytes # (Auto) 1.5 x10^3/uL (1.0-4.8) Monocytes # (Auto) 0.4 x10^3/uL (0.0-1.1) Eosinophils # (Auto) 0.1 x10^3/uL (0.0-0.7) Basophils # (Auto) 0.1 x10^3/uL (0.0-0.2) Sodium Level 143 mmol/L (136-145) Potassium Level 4.2 mmol/L (3.5-5.1) Chloride Level 107 mmol/L (98-107) Carbon Dioxide Level 28 mmol/L (21-32) Anion Gap 8 (6-14) Blood Urea Nitrogen 13 mg/dL (8-26) Creatinine 1.1 mg/dL (0.7-1.3) Estimated GFR (Cockcroft-Gault) 90.2 BUN/Creatinine Ratio 12 (6-20) Glucose Level 135 mg/dL (70-99) Calcium Level 8.1 mg/dL (8.5-10.1) Magnesium Level 2.1 mg/dL (1.8-2.4) Total Bilirubin 0.3 mg/dL (0.2-1.0) Aspartate Amino Transf (AST/SGOT) 72 U/L (15-37) Alanine Aminotransferase (ALT/SGPT) 36 U/L (16-63) Alkaline Phosphatase 178 U/L (46-116) Total Protein 7.1 g/dL (6.4-8.2) Albumin 3.3 g/dL (3.4-5.0) Albumin/Globulin Ratio 0.9 (1.0-1.7) Thyroid Stimulating Hormone (TSH) 2.072 uIU/mL (0.358-3.74) Ethyl Alcohol Level < 10 mg/dL (0-10) Urine Opiates Screen Pos (NEG) Urine Methadone Screen Neg (NEG) Urine Barbiturates Neg (NEG) Urine Phencyclidine Screen Pos (NEG) Urine Amphetamine/Methamphetamine Pos (NEG) Urine Benzodiazepines Screen Pos (NEG) Urine Cocaine Screen Pos (NEG) Urine Cannabinoids Screen Pos (NEG) Urine Ethyl Alcohol Neg (NEG) Laboratory Tests Test 03/04/20 13:21 03/04/20 13:22 03/04/20 13:30 Glucose (Fingerstick) 127 mg/dL (70-99) White Blood Count 3.4 x10^3/uL (4.0-11.0) Red Blood Count 4.49 x10^6/uL (4.30-5.70) Hemoglobin 11.0 g/dL (13.0-17.5) Hematocrit 34.8 % (39.0-53.0) Mean Corpuscular Volume 78 fL (79-100) Mean Corpuscular Hemoglobin 25 pg (25-35) Mean Corpuscular Hemoglobin Concent 32 g/dL (31-37) Red Cell Distribution Width 15.0 % (11.5-14.5) Platelet Count 226 x10^3/uL (140-400) Neutrophils (%) (Auto) 39 % (31-73) Lymphocytes (%) (Auto) 43 % (24-48) Monocytes (%) (Auto) 13 % (0-9) Eosinophils (%) (Auto) 4 % (0-3) Basophils (%) (Auto) 2 % (0-3) Neutrophils # (Auto) 1.3 x10^3/uL (1.8-7.7) Lymphocytes # (Auto) 1.5 x10^3/uL (1.0-4.8) Monocytes # (Auto) 0.4 x10^3/uL (0.0-1.1) Eosinophils # (Auto) 0.1 x10^3/uL (0.0-0.7) Basophils # (Auto) 0.1 x10^3/uL (0.0-0.2) Sodium Level 143 mmol/L (136-145) Potassium Level 4.2 mmol/L (3.5-5.1) Chloride Level 107 mmol/L (98-107) Carbon Dioxide Level 28 mmol/L (21-32) Anion Gap 8 (6-14) Blood Urea Nitrogen 13 mg/dL (8-26) Creatinine 1.1 mg/dL (0.7-1.3) Estimated GFR (Cockcroft-Gault) 90.2 BUN/Creatinine Ratio 12 (6-20) Glucose Level 135 mg/dL (70-99) Calcium Level 8.1 mg/dL (8.5-10.1) Magnesium Level 2.1 mg/dL (1.8-2.4) Total Bilirubin 0.3 mg/dL (0.2-1.0) Aspartate Amino Transf (AST/SGOT) 72 U/L (15-37) Alanine Aminotransferase (ALT/SGPT) 36 U/L (16-63) Alkaline Phosphatase 178 U/L (46-116) Total Protein 7.1 g/dL (6.4-8.2) Albumin 3.3 g/dL (3.4-5.0) Albumin/Globulin Ratio 0.9 (1.0-1.7) Thyroid Stimulating Hormone (TSH) 2.072 uIU/mL (0.358-3.74) Ethyl Alcohol Level < 10 mg/dL (0-10) Urine Opiates Screen Pos (NEG) Urine Methadone Screen Neg (NEG) Urine Barbiturates Neg (NEG) Urine Phencyclidine Screen Pos (NEG) Urine Amphetamine/Methamphetamine Pos (NEG) Urine Benzodiazepines Screen Pos (NEG) Urine Cocaine Screen Pos (NEG) Urine Cannabinoids Screen Pos (NEG) Urine Ethyl Alcohol Neg (NEG) VTE Prophylaxis Ordered VTE Prophylaxis Devices: No VTE Pharmacological Prophylaxi: No Assessment/Plan Assessment/Plan obtunded toxic encephalopathy polysubstance abuse, he only admits to THC use, but was using with new people he didnt know and was smoking their stuff. obese, BMI 34, prior gastric bypass, MICHELLE STILES MD March 04, 2020 16:19
--- NOTE | 2020-03-04 16:21 | NUR ---
SS following for discharge planning. SS reviewed pt chart and discussed with pt RN. Pt RN requesting PAT team referral as pt was positive for several drugs. Pt is from home and is currently on room air. PAT team referral made for assessment and recommendations. SS will continue to follow for discharge planning.
--- NOTE | 2020-03-04 16:59 | PDOC3 ---
Discharge Summary Visit Information Date of Admission: March 04, 2020 Date of Discharge: March 04, 2020 Final Diagnosis obtunded overdose, unintentional toxic encephalopathy polysubstance abuse, he only admits to THC use, but was using with new people he didnt know and was smoking their stuff. obese, BMI 34, prior gastric bypass, Problems Medical Problems: (1) Altered mental status Status: Acute (2) Polysubstance abuse Status: Acute Brief Hospital Course Allergies Allergies Coded Allergies Type Severity Reaction Last Updated Verified Penicillins Allergy Intermediate Rash 08/15/18 Yes Vital Signs Vital Signs Date Time Temp Pulse Resp B/P (MAP) Pulse Ox O2 Delivery O2 Flow Rate FiO2 03/04/20 15:14 97.8 63 16 143/61 (88) 100 Room Air 97.8 Lab Results Laboratory Tests Test 03/04/20 13:21 03/04/20 13:22 03/04/20 13:30 Glucose (Fingerstick) 127 mg/dL (70-99) White Blood Count 3.4 x10^3/uL (4.0-11.0) Red Blood Count 4.49 x10^6/uL (4.30-5.70) Hemoglobin 11.0 g/dL (13.0-17.5) Hematocrit 34.8 % (39.0-53.0) Mean Corpuscular Volume 78 fL (79-100) Mean Corpuscular Hemoglobin 25 pg (25-35) Mean Corpuscular Hemoglobin Concent 32 g/dL (31-37) Red Cell Distribution Width 15.0 % (11.5-14.5) Platelet Count 226 x10^3/uL (140-400) Neutrophils (%) (Auto) 39 % (31-73) Lymphocytes (%) (Auto) 43 % (24-48) Monocytes (%) (Auto) 13 % (0-9) Eosinophils (%) (Auto) 4 % (0-3) Basophils (%) (Auto) 2 % (0-3) Neutrophils # (Auto) 1.3 x10^3/uL (1.8-7.7) Lymphocytes # (Auto) 1.5 x10^3/uL (1.0-4.8) Monocytes # (Auto) 0.4 x10^3/uL (0.0-1.1) Eosinophils # (Auto) 0.1 x10^3/uL (0.0-0.7) Basophils # (Auto) 0.1 x10^3/uL (0.0-0.2) Sodium Level 143 mmol/L (136-145) Potassium Level 4.2 mmol/L (3.5-5.1) Chloride Level 107 mmol/L (98-107) Carbon Dioxide Level 28 mmol/L (21-32) Anion Gap 8 (6-14) Blood Urea Nitrogen 13 mg/dL (8-26) Creatinine 1.1 mg/dL (0.7-1.3) Estimated GFR (Cockcroft-Gault) 90.2 BUN/Creatinine Ratio 12 (6-20) Glucose Level 135 mg/dL (70-99) Calcium Level 8.1 mg/dL (8.5-10.1) Magnesium Level 2.1 mg/dL (1.8-2.4) Total Bilirubin 0.3 mg/dL (0.2-1.0) Aspartate Amino Transf (AST/SGOT) 72 U/L (15-37) Alanine Aminotransferase (ALT/SGPT) 36 U/L (16-63) Alkaline Phosphatase 178 U/L (46-116) Total Protein 7.1 g/dL (6.4-8.2) Albumin 3.3 g/dL (3.4-5.0) Albumin/Globulin Ratio 0.9 (1.0-1.7) Thyroid Stimulating Hormone (TSH) 2.072 uIU/mL (0.358-3.74) Ethyl Alcohol Level < 10 mg/dL (0-10) Urine Opiates Screen Pos (NEG) Urine Methadone Screen Neg (NEG) Urine Barbiturates Neg (NEG) Urine Phencyclidine Screen Pos (NEG) Urine Amphetamine/Methamphetamine Pos (NEG) Urine Benzodiazepines Screen Pos (NEG) Urine Cocaine Screen Pos (NEG) Urine Cannabinoids Screen Pos (NEG) Urine Ethyl Alcohol Neg (NEG) Laboratory Tests Test 03/04/20 13:21 03/04/20 13:22 03/04/20 13:30 Glucose (Fingerstick) 127 mg/dL (70-99) White Blood Count 3.4 x10^3/uL (4.0-11.0) Red Blood Count 4.49 x10^6/uL (4.30-5.70) Hemoglobin 11.0 g/dL (13.0-17.5) Hematocrit 34.8 % (39.0-53.0) Mean Corpuscular Volume 78 fL (79-100) Mean Corpuscular Hemoglobin 25 pg (25-35) Mean Corpuscular Hemoglobin Concent 32 g/dL (31-37) Red Cell Distribution Width 15.0 % (11.5-14.5) Platelet Count 226 x10^3/uL (140-400) Neutrophils (%) (Auto) 39 % (31-73) Lymphocytes (%) (Auto) 43 % (24-48) Monocytes (%) (Auto) 13 % (0-9) Eosinophils (%) (Auto) 4 % (0-3) Basophils (%) (Auto) 2 % (0-3) Neutrophils # (Auto) 1.3 x10^3/uL (1.8-7.7) Lymphocytes # (Auto) 1.5 x10^3/uL (1.0-4.8) Monocytes # (Auto) 0.4 x10^3/uL (0.0-1.1) Eosinophils # (Auto) 0.1 x10^3/uL (0.0-0.7) Basophils # (Auto) 0.1 x10^3/uL (0.0-0.2) Sodium Level 143 mmol/L (136-145) Potassium Level 4.2 mmol/L (3.5-5.1) Chloride Level 107 mmol/L (98-107) Carbon Dioxide Level 28 mmol/L (21-32) Anion Gap 8 (6-14) Blood Urea Nitrogen 13 mg/dL (8-26) Creatinine 1.1 mg/dL (0.7-1.3) Estimated GFR (Cockcroft-Gault) 90.2 BUN/Creatinine Ratio 12 (6-20) Glucose Level 135 mg/dL (70-99) Calcium Level 8.1 mg/dL (8.5-10.1) Magnesium Level 2.1 mg/dL (1.8-2.4) Total Bilirubin 0.3 mg/dL (0.2-1.0) Aspartate Amino Transf (AST/SGOT) 72 U/L (15-37) Alanine Aminotransferase (ALT/SGPT) 36 U/L (16-63) Alkaline Phosphatase 178 U/L (46-116) Total Protein 7.1 g/dL (6.4-8.2) Albumin 3.3 g/dL (3.4-5.0) Albumin/Globulin Ratio 0.9 (1.0-1.7) Thyroid Stimulating Hormone (TSH) 2.072 uIU/mL (0.358-3.74) Ethyl Alcohol Level < 10 mg/dL (0-10) Urine Opiates Screen Pos (NEG) Urine Methadone Screen Neg (NEG) Urine Barbiturates Neg (NEG) Urine Phencyclidine Screen Pos (NEG) Urine Amphetamine/Methamphetamine Pos (NEG) Urine Benzodiazepines Screen Pos (NEG) Urine Cocaine Screen Pos (NEG) Urine Cannabinoids Screen Pos (NEG) Urine Ethyl Alcohol Neg (NEG) Brief Hospital Course Mr. Lund is a 39 old male, admit after brought to ER obtunded, UDS lit up with most common items. he denied use, may have used without knowledge. we allowed him to sober up a few hours. he perked up right away after narcan Discharge Information Condition at Discharge: Improved Follow Up: Weeks Disposition/Orders: D/C to Home Scheduled Cyclobenzaprine Hcl (Cyclobenzaprine Hcl) 10 Mg Tablet, 1 TAB PO TID, #30 Prescribed by: Aide Jansen APRN on 02/26/19 1245 Docusate Sodium (Stool Softener) 100 Mg Capsule, 100 MG PO BID for constipation, (Reported) Entered as Reported by: SCARLETT STOVER RN on 08/16/18 1243 Lisinopril (Lisinopril) 10 Mg Tablet, 1 TAB PO DAILY, #30 Ref 5 (Reported) Entered as Reported by: TERI GONZALEZ on 03/23/18 1836 Oxycodone/Apap 7.5-325 (Percocet 7.5-325 Mg Tablet ) 1 Each Tablet, 1 TAB PO QID for pain, #28 (Reported) Entered as Reported by: SCARLETT STOVER RN on 08/16/18 1244 Scheduled PRN Ibuprofen (Ibuprofen) 800 Mg Tablet, 800 MG PO PRN Q8HRS PRN for INFLAMMATION, #30 Prescribed by: AGUILA HERRERA D.O. on 11/15/19 1028 Miscellaneous Medications Multivitamin (Multi-Vitamin Daily) 1 Each Tablet, 1 EACH PO, (Reported) Entered as Reported by: MOHINI ALMANZA on 01/30/18 0055 MICHELLE STILES MD March 04, 2020 16:59
[2020-03-04] MEDS ORDERED: ACETAMINOPHEN 325 MG TABLET. PO ONE (18:15)
== END 2020-03-04 21:20 | disposition home or self-care (01) ==
LOC: ER 13:16 → 2 SOUTH 14:10
PROVIDERS: ADMIT Internal Medicine; ATTEND Internal Medicine
DX: R41.82 Altered mental status, unspecified (principal); F19.10 Other psychoactive substance abuse, uncomplicated; I10 Essential (primary) hypertension; J45.909 Unspecified asthma, uncomplicated; E66.9 Obesity, unspecified; G92 Toxic encephalopathy; Z98.84 Bariatric surgery status; Z68.34 Body mass index [BMI] 34.0-34.9, adult
CPT/HCPCS: 36415; 71045; 80053; 80307; 82962; 83735; 84443; 85025; 93005; 96374; 99285; G0378; G0480; J2310; G0379

== ENCOUNTER 2020-04-12 21:51 | Emergency (ER) | payer SELFPAY ==
[~2020-04-12] VITALS: Ht 182.9 cm; Wt 120.0 kg
--- NOTE | 2020-04-12 23:19 | PHYS DOC ---
Past Medical History Past Medical History: Depression, High Cholesterol, Hypertension, Other Additional Past Medical Histor: SLEEP APNEA,ABSCESSES MULTIPLE W/I&D,CHRONIC PAIN,C2/C3 FX/HEMATOMA Past Surgical History: Cholecystectomy, Other Additional Past Surgical Histo: PILONIDAL CYST REMOVAL X 3,GASTRIC BYPASS,ABSCESS X 3 Smoking Status: Current Every Day Smoker Alcohol Use: Occasionally Drug Use: None General Adult EDM: Chief Complaint: OVERDOSE HPI: HPI: 39-year-old male brought in by private vehicle found unresponsive. On arrival patient unresponsive with pinpoint pupils. Patient was diaphoretic. Patient had a GCS of 3. Patient was maintaining his airway. Patient was treated with Narcan a total of 0.8mg. Patient awake after treatment. Patient denies any opiate use. Review of Systems: Review of Systems: Unable to obtain due to medical condition Heart Score: Risk Factors: Risk Factors: DM, Current or recent (<one month) smoker, HTN, HLP, family history of CAD, obesity. Risk Scores: Score 0 - 3: 2.5% MACE over next 6 weeks - Discharge Home Score 4 - 6: 20.3% MACE over next 6 weeks - Admit for Clinical Observation Score 7 - 10: 72.7% MACE over next 6 weeks - Early Invasive Strategies Allergies: Allergies: Allergies Coded Allergies Type Severity Reaction Last Updated Verified Penicillins Allergy Intermediate Rash 08/15/18 Yes Physical Exam: PE: Constitutional: Well developed, well nourished, no acute distress, non-toxic appearance. [] HENT: Normocephalic, atraumatic, Eyes:pinpoint pupils Neck: supple, no stridor. [] Cardiovascular:Heart rate regular rhythm, Lungs & Thorax: Bilateral breath sounds clear to auscultation [no respiratory distress] Abdomen: Bowel sounds normal, soft, Skin: diaphoretic Back: No tenderness, no CVA tenderness. [] Extremities: no deformities Neurologic:unresponsive Current Patient Data: Labs: Laboratory Tests Test 04/12/20 21:54 Glucose (Fingerstick) 241 mg/dL (70-99) H Vital Signs: Vital Signs Date Time Temp Pulse Resp B/P (MAP) Pulse Ox O2 Delivery O2 Flow Rate FiO2 04/12/20 21:55 98.7 99 18 168/107 (127) 99 Room Air 98.7 EKG: EKG: [] EKG taken at 2204 Heart rate 79 normal sinus rhythm no ST elevation, no ST depression, no acute IN Radiology/Procedures: Radiology/Procedures: [] Course & Med Decision Making: Course & Med Decision Making Pertinent Labs and Imaging studies reviewed. (See chart for details) []Patient evaluated for altered mental status. Treated with narcan shortly after arrival with improved mental status. Patient observed. Patient required repeat dose of narcan 0.4mg 0045. Patient re-evaluated at 0245. Patient denies opiate use and states he smoke THC. Significant other at bedside. Patient easily arousable. Re-evaluation 0330hrs Patient with no complaints. Ambulates with steady gait. Discharge home in care of family. Dragon Disclaimer: Maribel Disclaimer: This electronic medical record was generated, in whole or in part, using a voice recognition dictation system. Departure Departure Impression: Primary Impression: Accidental overdose Disposition: 01 HOME, SELF-CARE Condition: STABLE Referrals: UNKNOWN PCP NAME (PCP) Justicifation of Admission Dx: Justifications for Admission: Justification of Admission Dx: N/A RADHA MIGUEL DO Apr 12, 2020 23:19
[2020-04-13] MEDS ORDERED: NALOXONE 0.4 MG/ML VIAL. IV ONE ×4 (00:15→00:45)
[2020-04-13] MEDS ORDERED: diphenhydrAMINE HCL 25 MG CAPSULE PO ONE (01:00)
[2020-04-13 02:53] LABS: BASO % 0 % (0-3); EOS # 0.1 x10^3/uL (0.0-0.7); EOS % 2 % (0-3); HEMATOCRIT 39.3 % (39.0-53.0); HEMOGLOBIN 12.3 g/dL (13.0-17.5); LYMPH # 1.7 x10^3/uL (1.0-4.8); LYMPH % 24 % (24-48); MEAN CORPUSCULAR HEMOGLOBIN 25 pg (25-35); MEAN CORPUSCULAR HGB CONC 31 g/dL (31-37); MEAN CORPUSCULAR VOLUME 79 fL (79-100); MONO # 0.4 x10^3/uL (0.0-1.1); MONO % 5 % (0-9); NEUT # 4.8 x10^3/uL (1.8-7.7); NEUT % 68 % (31-73); PLATELET COUNT 229 x10^3/uL (140-400); RED BLOOD COUNT 4.96 x10^6/uL (4.30-5.70); RED CELL DISTRIBUTION WIDTH 15.1 % (11.5-14.5); WHITE BLOOD COUNT 7.1 x10^3/uL (4.0-11.0)
[2020-04-13 03:04] LABS: CALCIUM 8.2 mg/dL (8.5-10.1); CREATININE 1.6 mg/dL (0.7-1.3); GFR 58.5; POTASSIUM 3.3 mmol/L (3.5-5.1)
[2020-04-13 03:10] LABS: ALBUMIN 3.5 g/dL (3.4-5.0); ALBUMIN/GLOBULIN RATIO 0.9 (1.0-1.7); TOTAL BILIRUBIN 0.7 mg/dL (0.2-1.0); TOTAL PROTEIN 7.3 g/dL (6.4-8.2)
[2020-04-13 03:35] VITALS: BP 170/91
--- NOTE | 2020-04-13 11:47 | EKG ---
[facility] [address] [place] [address] Test Date: 2020-04-12 Test Time: 22:04:01 Pat Name: STEVEN BARNETT Department: Room: Gender: M [place]: : 1980 Requested By: RADHA MIGUEL Order Number: [id number] Reading MD: Measurements Intervals [place] Rate: 79 P: 43 NE: 138 QRS: 28 QRSD: 90 T: 27 QT: 352 QTc: 405 Interpretive Statements SINUS RHYTHM NORMAL ECG RI6.02 No previous ECG available for comparison
== END 2020-04-13 03:40 | disposition home or self-care (01) ==
LOC: ER 21:51
DX: T50.901A Poisoning by unspecified drugs, medicaments and biological substances, accidental (unintentional), initial encounter (principal); R41.82 Altered mental status, unspecified; I10 Essential (primary) hypertension; E78.00 Pure hypercholesterolemia, unspecified; F17.200 Nicotine dependence, unspecified, uncomplicated; Z88.0 Allergy status to penicillin; Y92.89 Other specified places as the place of occurrence of the external cause
CPT/HCPCS: 36415; 80053; 82962; 85025; 93005; 96374; 99284; J2310

== ENCOUNTER 2020-07-16 01:12 | Emergency (ER) | payer SELFPAY ==
[~2020-07-16] VITALS: Ht 182.9 cm; Wt 122.7 kg
--- NOTE | 2020-07-16 01:21 | PHYS DOC ---
Past Medical History Past Medical History: Depression, High Cholesterol, Hypertension, Other Additional Past Medical Histor: SLEEP APNEA,ABSCESSES MULTIPLE W/I&D,CHRONIC PAIN,C2/C3 FX/HEMATOMA Past Surgical History: Cholecystectomy, Other Additional Past Surgical Histo: PILONIDAL CYST REMOVAL X 3,GASTRIC BYPASS,ABSCESS X 3 Smoking Status: Current Every Day Smoker Alcohol Use: Occasionally Drug Use: None General Adult HPI: HPI: Patient is a 39-year-old male who arrives via private vehicle for unresponsiveness. Patient arrives after girlfriend states the patient was unresponsive. Patient denies any drug or alcohol abuse tonight. Denies any history of drug abuse. States he was sleeping at home and does not know why he is here. Patient has no complaints he states. No further history can be obtained. Patient was monitored closely on capnography. His respiratory rate was approximately 6. Given the 0.4 mg of IV Narcan was administered. This did improve the patient's mentation and respiratory rate immediately. After administration of this he did become much more alert. He does state that he took 3, 7.5 mg [place] tablets at home due to dental pain. He states he is not trying to take this medication in an attempt to harm himself. He denies any other alcohol or drug ingestions. Denies any falls or head trauma. Girlfriend corroborates the story. He states he has no pain related complaints at this time other than he feels somewhat sleepy. He states this has happened once before several months ago. He has no other complaints at this time. Review of Systems: Review of Systems: Constitutional: Positive for unresponsiveness Eyes: Denies change in visual acuity. [] HENT: Denies nasal congestion or sore throat. [] Respiratory: Denies cough or shortness of breath. [] Cardiovascular: Denies chest pain or edema. [] GI: Denies abdominal pain, nausea, vomiting, bloody stools or diarrhea. [] : Denies dysuria. [] Musculoskeletal: Denies back pain or joint pain. [] Integument: Denies rash. [] Neurologic: Denies headache, focal weakness or sensory changes. [] Endocrine: Denies polyuria or polydipsia. [] Lymphatic: Denies swollen glands. [] Psychiatric: Denies depression or anxiety. [] Heart Score: Risk Factors: Risk Factors: DM, Current or recent (<one month) smoker, HTN, HLP, family history of CAD, obesity. Risk Scores: Score 0 - 3: 2.5% MACE over next 6 weeks - Discharge Home Score 4 - 6: 20.3% MACE over next 6 weeks - Admit for Clinical Observation Score 7 - 10: 72.7% MACE over next 6 weeks - Early Invasive Strategies Allergies: Allergies: Allergies Coded Allergies Type Severity Reaction Last Updated Verified Penicillins Allergy Intermediate Rash 08/15/18 Yes Physical Exam: PE: Constitutional: Well developed, well nourished, no acute distress, non-toxic appearance. [] HENT: Normocephalic, atraumatic, bilateral external ears normal, oropharynx moist, no oral exudates, nose normal. [] Eyes: PERRLA, EOMI, conjunctiva normal, no discharge. Pupils 2 mm bilaterally. [] Neck: Normal range of motion, no tenderness, supple, no stridor. [] Cardiovascular:Heart rate regular rhythm, no murmur [] Lungs & Thorax: Bilateral breath sounds clear to auscultation [] Abdomen: soft, no tenderness, no masses, no pulsatile masses. [] Skin: Warm, dry, no erythema, no rash. [] Back: No tenderness, no CVA tenderness. [] Extremities: No tenderness, no cyanosis, no clubbing, ROM intact, no edema. [] Neurologic: GCS:14 [id number] Alert and oriented X 3, normal motor function, normal sensory function, no focal deficits noted. [] Psychologic: Affect normal, judgement normal, mood normal. [] Current Patient Data: Vital Signs: Vital Signs Date Time Temp Pulse Resp B/P (MAP) Pulse Ox O2 Delivery O2 Flow Rate FiO2 07/16/20 03:10 100 07/16/20 02:53 78 07/16/20 02:43 69 07/16/20 02:34 73 07/16/20 02:33 78 100 07/16/20 02:23 65 100 07/16/20 02:13 53 100 07/16/20 02:03 56 07/16/20 01:53 73 07/16/20 01:43 65 100 07/16/20 01:33 78 100 07/16/20 01:23 68 100 07/16/20 01:12 98.6 89 12 175/105 (128) 98 Room Air 98.6 EKG: EKG: [] EKG consistent with normal sinus rhythm. Ventricular rate of 77 bpm. Left axis noted. T wave flattening noted in lead III. No acute ischemic changes appreciated. Radiology/Procedures: Radiology/Procedures: [] Course & Med Decision Making: Course & Med Decision Making Pertinent Labs and Imaging studies reviewed. (See chart for details) [] Patient is a 39-year-old male who arrives via private vehicle with concerns for unresponsiveness. Initially patient had a GCS 13 [id number]. Due to a low respiratory rate intravenous Narcan was administered. This did improve the patient's mentation and respiratory rate immediately. He did endorse taking 3, 7.5 mg [place] tablets prior to arrival due to dental pain. Denies any suicidal homicidal ideations. Denies any other drug or alcohol ingestions. Basic labs will be deferred at this time given patient does report taking [place] and did respond to Narcan. Patient was monitored in emergency department and showed no signs of clinical deterioration. He was given oral amoxicillin for his dental pain. I do feel he is appropriate for discharge home. Girlfriend is at bedside and can monitor him closely at home. He will be discharged home with a course of amoxicillin. Strict return precautions were discussed and understood. He was counseled on appropriate use of opiates. Instructed to follow-up with his primary care physician in the next 2 to 3 days. Stable for discharge home. Cristopheron Disclaimer: Maribel Disclaimer: This electronic medical record was generated, in whole or in part, using a voice recognition dictation system. Departure Departure Impression: Primary Impression: Accidental overdose Qualified Codes: T50.901A - Poisoning by unspecified drugs, medicaments and biological substances, accidental (unintentional), initial encounter Additional Impression: Pain, dental Disposition: HOME, SELF-CARE Condition: STABLE Referrals: NO PCP (PCP) Patient Instructions: Narcotic Overdose Additional Instructions: [facility] [address] [place] [address] [facility] [address] [place] [address] [place] [address] [facility] [address] [place] [address] [facility] [address] [place] [address] [address] [place] [address] [address] Story [address] [place] [address] [facility] [place] [address] [place] [address] [facility] [address] [place] [address] [facility] [address] [place] [address] Scripts Clindamycin Hcl (CLINDAMYCIN HCL) 300 Mg Capsule 1 CAP PO TID for 7 Days, #21 CAP Prov: OMER CAMP DO 07/16/20 Justicifation of Admission Dx: Justifications for Admission: Justification of Admission Dx: N/A OMER CAMP DO Jul 16, 2020 01:21
[2020-07-16 01:29] LABS: BASO # 0.1 x10^3/uL (0.0-0.2); BASO % 1 % (0-3); EOS # 0.3 x10^3/uL (0.0-0.7); EOS % 5 % (0-3); HEMOGLOBIN 11.2 g/dL (13.0-17.5); LYMPH % 43 % (24-48); MEAN CORPUSCULAR HEMOGLOBIN 24 pg (25-35); MEAN CORPUSCULAR HGB CONC 32 g/dL (31-37); MEAN CORPUSCULAR VOLUME 76 fL (79-100); MONO # 0.5 x10^3/uL (0.0-1.1); MONO % 10 % (0-9); NEUT # 1.9 x10^3/uL (1.8-7.7); NEUT % 40 % (31-73); PLATELET COUNT 198 x10^3/uL (140-400); RED BLOOD COUNT 4.61 x10^6/uL (4.30-5.70); RED CELL DISTRIBUTION WIDTH 14.3 % (11.5-14.5); WHITE BLOOD COUNT 4.6 x10^3/uL (4.0-11.0)
[2020-07-16] MEDS ORDERED: ONDANSETRON PF 4 MG/2 ML VIAL. ONE (01:29)
[2020-07-16] MEDS ORDERED: IV NORMAL SALINE 1000ML BAG 1,000 ML IV ONE (01:30)
[2020-07-16] MEDS ORDERED: ONDANSETRON PF 4 MG/2 ML VIAL. IVP ONE (01:30)
[2020-07-16] MEDS ORDERED: NALOXONE 0.4 MG/ML VIAL. IV ONE (01:30)
[2020-07-16] MEDS ORDERED: CLIN300C8 PO (03:00)
[2020-07-16] MEDS ORDERED: CLINDAMYCIN HCL 150 MG CAPSULE. PO ONE (03:00)
[2020-07-16] MEDS ORDERED: IBUPROFEN 200 MG TABLET. PO ONE (03:00)
[2020-07-16 03:10] VITALS: BP 174/103
--- NOTE | 2020-07-16 11:53 | EKG ---
[facility] [address] [place] [address] Test Date: 2020-07-16 Test Time: 01:18:47 Pat Name: STEVEN BARNETTEnricoJason Department: Room: Gender: M [employer]: : 1980 Requested By: OMER CAMP Order Number: [id number] Reading MD: Measurements Intervals [place] Rate: 77 P: 40 LA: 160 QRS: 2 QRSD: 96 T: 35 QT: 360 QTc: 409 Interpretive Statements SINUS RHYTHM LEFT ATRIAL ABNORMALITY ABNORMAL ECG RI6.01 No previous ECG available for comparison
== END 2020-07-16 03:10 | disposition home or self-care (01) ==
LOC: ER 01:12
DX: T40.691A Poisoning by other narcotics, accidental (unintentional), initial encounter (principal); R40.4 Transient alteration of awareness; I10 Essential (primary) hypertension; G89.29 Other chronic pain; F17.200 Nicotine dependence, unspecified, uncomplicated; F32.9 Major depressive disorder, single episode, unspecified; E78.00 Pure hypercholesterolemia, unspecified; Z88.0 Allergy status to penicillin; Y92.89 Other specified places as the place of occurrence of the external cause
CPT/HCPCS: 36415; 85025; 93005; 96361; 96374; 96375; 99285; J2310; J2405; J7030